=== PATIENT | male | born 1935 | race Caucasian/White ===

== ENCOUNTER 2016-11-22 09:20 | Day surgery (SDC) | payer MEDICARE, BC ==
[2016-11-22] VITALS (9 sets, daily range): BP systolic 113–148; BP diastolic 50–65; PULSE 69–84; RESP 12–22; TEMP 97.5–97.9; O2SAT 91–96; Ht 162.6 cm; Wt 87.4 kg
[~2016-11-22] VITALS: Ht 162.6 cm; Wt 87.4 kg
[~2016-11-22 09:20] MED LIST: AMLO5TAB2 PO; ASPI-728 PO; CALC667T5 PO; CHOL100018 PO; DiphenhydrAMINE 50 MG/ML INJECTION IV ONE; ERTAPENEM IV ONE; INSU100V28 SQ; INSU100V36 SQ; LACT10SO PO; MULT-806 PO; NORMAL SALINE 1,000 ML IV ONE; NORMAL SALINE IV ONE; OXYC-541 PO; POLY255P2 PO; SIMV20TA6 PO; [UNRECOGNIZED DRUG - CODE] PO
--- OUTSIDE RECORDS SUMMARY | 2016-11-22 09:24 | XMS REPORT | Continuity of Care Document ---
Author Author [facility] Organization [facility] Address Unknown Phone Unavailable Support Name Relationship Address Phone SEBASTIAN SULTANA MD Caregiver [facility] [address] [place] [address] Unavailable TAMERA FAULKNER MD Caregiver [address] [place] [address] [phone] ROSALIA GARSIA Next Of Kin [address] [place] [address] Insurance Providers Payer Name Policy Number Subscriber Name Relationship Medicare [id number] Maciej Coleman 18 Self [facility] [id number] Maciej Coleman 18 Self Problems Medical Problems Problem Onset Date Status Congestive Heart Failure not otherwise specified Unknown Active Chronic renal failure syndrome Unknown Active IDDM Unknown Active Pneumonia LLL Unknown Active RLL pneumonia Unknown Active Anterior epistaxis Unknown Active CKD (chronic kidney disease) stage 5, GFR less than 15 ml/min Unknown Active Diastolic CHF, chronic Unknown Active Hypocalcemia Unknown Active Abdominal wall pain Unknown Active Pneumonia Unknown Active Medications Medication Dose Route Sig Days/Qty Instructions Order Date Discontinued Date Status Simvastatin 40 Mg PO DAILY 11/02/10 Active Potassium Chloride 10 Meq PO DAILY 11/02/10 Active Metoprolol Tartrate 25 Mg PO TWICE A DAY 11/02/10 Active Pentoxifylline 400 Mg PO TWICE A DAY 11/02/10 Active Nifedipine 30 Mg PO DAILY 11/02/10 Active Aspirin 325 Mg PO DAILY 11/02/10 Active Docusate Sodium 100 Mg PO TWICE A DAY 11/02/10 Active Multivitamins 1 Tab PO DAILY 11/02/10 Active Insulin Aspart 14 Unit SQ TID WITH MEALS 11/02/10 Active Insulin Glargine 35 Unit SQ BEDTIME 11/02/10 Active Hydrocodone/Acetaminophen 1-2 Tab PO FOUR TIMES DAILY PRN PAIN 30 Qty 08/22/14 Active Azithromycin 1 Tab PO DAILY 4 Qty TAKE TWO ON DAY ONE, 08/22/14 Active Social History Social History Problem Response Recorded Date/Time Hx Alcohol Use No 08/21/2014 11:50pm Has the pt used tobacco in the last 12 months No 09/15/2013 11:00pm Tobacco Usage none 08/22/2014 12:40am Query Response Start Date Stop Date Smoking Status Former smoker Hospital Discharge Instructions No hospital discharge instructions. Plan of Care No plan of care. Functional Status Query Response Date Recorded Physical Hygiene Self August 21, 2014 11:50pm Disabilities None August 21, 2014 11:50pm Devices Used Dentures Glasses August 21, 2014 11:50pm Dressing Self August 21, 2014 11:50pm Ambulation Self August 21, 2014 11:50pm Diet Self August 21, 2014 11:50pm Mental Status Alert Oriented August 21, 2014 11:50pm Disabilities None August 21, 2014 11:50pm Devices Used Dentures Glasses August 21, 2014 11:50pm Physical Hygiene Self August 21, 2014 11:50pm Dressing Self August 21, 2014 11:50pm Ambulation Self August 21, 2014 11:50pm Diet Self August 21, 2014 11:50pm Allergies, Adverse Reactions, Alerts Allergen Type Severity Reaction Status Last Updated Penicillin Allergy Unknown Active 08/21/14 Levofloxacin Allergy Unknown Active 08/21/14 Immunizations Name Given Type Hx Influenza Vaccination Y Fall 2012 Historical Hx Pneumococcal Vaccination Y Doesn't remember when, within last 5 years Historical Hx Influenza Vaccination Y Fall 2012 Historical Vital Signs Acute Vital Signs Vital Response Date/Time Temperature (Fahrenheit) 98.5 deg F (96.8 - 99.1) Temperature (Calculated Celsius) 36.42822 degrees C (36.0 - 37.3) Pulse Rate (adult) 78 bpm (60 - 100) Respiratory Rate 24 breaths/min (10 - 20) O2 Sat by Pulse Oximetry 97 % (90 - 100) Blood Pressure 167/84 mm Hg Height 5 ft 3 in Weight 225 lb Body Mass Index 39.0 kg/m^2 Results Test Source Date Result Interp. Ref. Range Comments Alanine Aminotransferase (ALT/SGPT) August 19, 2014 8:00am 29 U/L N 21- 72 Albumin August 19, 2014 8:00am 3.7 G/DL N 3.5-5.0 Albumin/Globulin Ratio August 19, 2014 8:00am 1.1 RATIO N 1.1-2.2 Alkaline Phosphatase August 19, 2014 8:00am 140 U/L H 38-126 Anion Gap August 19, 2014 8:00am 15 MEQ/L N 5-15 Aspartate Amino Transf (AST/SGOT) August 19, 2014 8:00am 20 U/L N 17- 59 B-Type Natriuretic Peptide November 02, 2010 6:11pm 426 PG/ML H 15-100 BUN/Creatinine Ratio August 19, 2014 8:00am 13 RATIO N 6-26 Band Neutrophils # September 19, 2013 4:48am 0.7 T/MM3 - Band Neutrophils % September 19, 2013 4:48am 11.0 % DH 0-6 Basophils # (Auto) August 19, 2014 8:00am 0.0 T/MM3 N 0-0.2 Basophils (%) (Auto) August 19, 2014 8:00am 0.3 % N 0-2 Blood Urea Nitrogen August 19, 2014 8:00am 69.0 MG/DL PH 9-20 Calcium Level August 19, 2014 8:00am 7.5 MG/DL L 8.4-10.2 Calculated Osmolality August 19, 2014 8:00am 296 MOSM/KG H 261-280 Carbon Dioxide Level August 19, 2014 8:00am 23 MEQ/L N 22-30 Chloride Level August 19, 2014 8:00am 103 MEQ/L N 98-107 Conjugated Bilirubin November 02, 2010 5:10pm 0.00 MG/DL N 0.00-0.30 Creatinine August 19, 2014 8:00am 5.3 MG/DL H 0.8-1.5 Differential Total Cells Counted November 02, 2010 5:10pm 100 % - Eosinophils # (Auto) August 19, 2014 8:00am 0.3 T/MM3 N 0-0.5 Eosinophils # (Manual) September 19, 2013 4:48am 0.1 T/MM3 N 0-0.5 Eosinophils % (Manual) September 19, 2013 4:48am 2.0 % N 0-4 Eosinophils (%) (Auto) August 19, 2014 8:00am 4.2 % H 0-4 Globulin August 19, 2014 8:00am 3.4 G/DL N 2.4-3.6 Glucose Level August 19, 2014 8:00am 184 MG/DL H 75-110 Hematocrit August 19, 2014 8:00am 31.9 % L 41-53 Hemoglobin August 19, 2014 8:00am 10.3 GM/DL L 13.5-17.5 Hemoglobin A1c September 18, 2013 4:50am 7.8 % H 6-7 <6.0 NON-DIABETIC RANGE6.0-7.0 ADA THERAPEUTIC RANGE >7.0 ACTION SUGGESTED Influenza Type A Antigen August 22, 2014 12:24am Negative - Negative for Flu A protein antigen. Assay sensitivity is90%. Influenza Type B Antigen August 22, 2014 12:24am Negative - Negative for Flu B protein antigen. Assay sensitivity is90%. Lymphocytes # (Auto) August 19, 2014 8:00am 1.2 T/MM3 N 1-4.8 Lymphocytes # (Manual) September 19, 2013 4:48am 1.7 T/MM3 N 1-4.8 Lymphocytes % (Manual) September 19, 2013 4:48am 28.0 % N 23-45 Lymphocytes (%) (Auto) August 19, 2014 8:00am 15.4 % L 23-45 Mean Corpuscular Hemoglobin August 19, 2014 8:00am 27.9 UUG N 26-34 Mean Corpuscular Hemoglobin Concent August 19, 2014 8:00am 32.3 GM/DL N 31-37 Mean Corpuscular Volume August 19, 2014 8:00am 86.4 UM3 N 80-100 Mean Platelet Volume August 19, 2014 8:00am 9.3 UM3 L 9.4-12.4 Monocytes # (Auto) August 19, 2014 8:00am 0.6 T/MM3 N 0-0.8 Monocytes # (Manual) September 19, 2013 4:48am 0.5 T/MM3 N 0-0.8 Monocytes % (Manual) September 19, 2013 4:48am 8.0 % N 0-9.0 Monocytes (%) (Auto) August 19, 2014 8:00am 8.0 % N 0-9.0 Neutrophils # (Auto) August 19, 2014 8:00am 5.6 T/MM3 N 1.8-7.7 Neutrophils # (Manual) September 19, 2013 4:48am 3.0 T/MM3 N 1.8-7.7 Neutrophils % (Manual) September 19, 2013 4:48am 50.0 % N 33-66 Neutrophils (%) (Auto) August 19, 2014 8:00am 71.8 % H 33-66 Platelet Count August 19, 2014 8:00am 165 T/MM3 N 130-400 Potassium Level August 19, 2014 8:00am 3.7 MEQ/L N 3.6-5 Prealbumin September 16, 2013 7:05am 22.5 MG/DL N 17.6-36.0 RDW Standard Deviation August 19, 2014 8:00am 44.0 FL N 36.9-50.2 Red Blood Count August 19, 2014 8:00am 3.69 M/MM3 L 4.50-5.90 Sodium Level August 19, 2014 8:00am 141 MEQ/L N 134-144 Thyroid Stimulating Hormone (TSH) September 16, 2013 7:05am 2.26 MIU/L N 0.47-4.68 COMMENT blood in lab Total Bilirubin August 19, 2014 8:00am 0.60 MG/DL N 0.20-1.30 Total Protein August 19, 2014 8:00am 7.1 G/DL N 6.3-8.2 Troponin I August 19, 2014 8:00am 0.062 ng/ml N 0-0.12 Unconjugated Bilirubin November 02, 2010 5:10pm 0.75 MG/DL N 0.00-1.10 Urine Bilirubin September 15, 2013 7:30pm Negative - Has specimen been collected/obtained? Y Urine Blood September 15, 2013 7:30pm 1+ H - Has specimen been collected /obtained? Y Urine Collection Type September 15, 2013 7:30pm Voided-not cc-midstr - Has specimen been collected/obtained? Y Urine Color September 15, 2013 7:30pm Yellow - Has specimen been collected/obtained? Y Urine Culture Indicated November 02, 2010 6:27pm Cult not indicated - Has specimen been collected/obtained? Y Urine Glucose (UA) September 15, 2013 7:30pm 2+ H - Has specimen been collected/obtained? Y Urine Ketones September 15, 2013 7:30pm Negative - Has specimen been collected/obtained? Y Urine Leukocyte Esterase September 15, 2013 7:30pm Negative - Has specimen been collected/obtained? Y Urine Nitrite September 15, 2013 7:30pm Negative - Has specimen been collected/obtained? Y Urine Protein September 15, 2013 7:30pm 2+ H - Has specimen been collected/obtained? Y Urine RBC November 02, 2010 6:27pm 0-1 /HPF - Has specimen been collected/obtained? Y Urine Specific [place] September 15, 2013 7:30pm 1.015 - Has specimen been collected/obtained? Y Urine Turbidity September 15, 2013 7:30pm Clear - Has specimen been collected/obtained? Y Urine Urobilinogen September 15, 2013 7:30pm 0.2 EU/DL - Has specimen been collected/obtained? Y Urine WBC September 15, 2013 7:30pm 1-3 /HPF - Has specimen been collected/obtained? Y Urine pH September 15, 2013 7:30pm 6.0 - Has specimen been collected/ obtained? Y Vitamin B12 Level September 16, 2013 7:05am 520 PG/ML N 239-931 White Blood Count August 19, 2014 8:00am 7.8 T/MM3 N 4.5-11.0 Chemistry Specimen Hemolysis August 19, 2014 8:00am < 15 0-25 0-25: No Hemolysis.26-70: Slight Hemolysis - can falsely elevate K and Urine Protein. 71-285: Moderate Hemolysis - can falsely elevate K, Troponin I, CA 19-9, PTH, CSF GLucose, and Urine Protein, and can falsely decrease Phenytoin. 286-999: Gross Hemolysis - can falsely elevate K, Troponin I, CA 19-9, PTH, CSF Glucose, and Urine Protine, and can falsely decrease Phenytoin. Recommend specimen recollection. Glucometer September 20, 2013 11:40am 182 mg/dL H 75-110 Lab Scanned Report January 10, 2010 10:32am LAB TEST FORM REQUEST [id number] - Turbidity August 19, 2014 8:00am < 20 0-20 Reactive Lymphocytes % September 19, 2013 4:48am 1.0 % H 0-0 Glomerular Filtration Rate Calc August 19, 2014 8:00am 11 - Reactive Lymphocytes # September 19, 2013 4:48am 0.1 T/MM3 H 0-0 Immature Granulocyte # (Auto) August 19, 2014 8:00am 0.02 T/MM3 N 0.00- 0.03 Immature Granulocyte % (Auto) August 19, 2014 8:00am 0.3 % N 0.0-0.5 Venous Blood Lactate September 15, 2013 6:58pm 1.0 MMOL/L N 0.6-2.2 Procalcitonin September 15, 2013 6:58pm 0.12 NG/ML - PCT </=0.5 ng/mL - sepsis not likely;PCT >0.5 and </=2 ng/mL - sepsis possible; PCT >2 ng/mL - sepsis likely; PCT >/=10 ng/mL - systemic inflammatory response - sepsis or septic shock highly indicated. Icterus Index August 19, 2014 8:00am < 2 0-7 JP-Qqm-I-Type Natriuretic Peptide August 19, 2014 8:00am 11420 PG/ML H 0-175 Rule in cut points: <50 years old=450; 50-75 years old=900; >75 years old=1800; When utilizing ProBNP rule-in cut points, adjustment for impaired renal function is typically not required. Blood Culture Blood September 15, 2013 7:50pm NO GROWTH AFTER 5 DAYS Gram Stain Sputum-Expectorated Sputum September 15, 2013 9:00pm Name: MACIEJ COLEMAN Unit #: [id number] : 1935 Sex: M Loc / Svc: ED DOS: 08/19/14 Signed Report #: [id number] DIAGNOSTIC IMAGING REPORT TYPE OF EXAM: CHEST, PA & LATERAL Dictated By: TARAH GOMEZ MD INDICATION: ITS.REASON: cough, hx pneumonia CHEST 2-VIEWS UPRIGHT (PA & LAT): COMPARISON: September 18, 2013 FINDINGS: Post sternotomy changes are again noted. Severe cardiomegaly is redemonstrated. Mediastinal contours are stable. Pulmonary vascularity appears normal. No definite focal airspace consolidation. Portions of the left lung base obscured by the enlarged cardiac silhouette. No pleural effusion or pneumothorax. Arterial vascular calcifications. Impression: No pneumonia or congestive failure. Severe cardiomegaly. . Procedures Procedure Status Date Provider(s) E&M LEVEL - FACILITY completed 07/20/14 KANDACE MILIAN [facility] completed 08/02/14 [id number]"BORDER, EACH DRESSING" completed 08/02/14 [id number]"EQUAL TO 48 SQ. IN., WITHOUT ADHESIVE BORDER, EACH DR completed APPLY CECIL MILIAN LWR LEG completed 07/28/14 [id number]"BORDER, EACH DRESSING" completed 07/28/14 E&M LEVEL - FACILITY completed 07/28/14 APPLY CECIL MILIAN [facility]WR LEG completed 08/09/14 [id number]"BORDER, EACH DRESSING" completed 08/09/14 E&M LEVEL - FACILITY completed 08/09/14 E&M LEVEL - FACILITY completed 08/16/14 Encounters Encounter Location Date/Time Departed Emergency Room [facility] 08/21/14 11:11pm Departed Emergency Room [facility] 08/19/14 7:27am Registered Clinic [facility] 08/16/14 9:07am Registered Clinic [facility] 08/09/14 9:06am Registered Clinic [facility] 08/02/14 8:06am Registered [facility] 07/28/14 10:52am Registered [facility] 07/20/14 7:32am Recent Diagnosis
--- OUTSIDE RECORDS SUMMARY | 2016-11-22 09:24 | XMS REPORT | Continuity of Care Document ---
Author Author [facility] Organization [facility] Address Unknown Phone Unavailable Support Name Relationship Address Phone TAMERA FAULKNER MD Caregiver [address] [place] [phone] VIANNEY RATLIFF MD Caregiver [address] [facility] [place] [phone] ROSALIA GARSIA Next Of Kin [address] [place], [place] [id number] Insurance Providers Payer Name Policy Number Subscriber Name Relationship Medicare [id number] Maciej Coleman 18 Self [facility] [id number] Maciej Coleman 18 Self Problems Medical Problems [...] wall pain Unknown Active Pneumonia Unknown Active RLL pneumonia Unknown Active Influenza A Unknown Active Influenza A Unknown Active Medications Medication Dose Route Sig [...] Glargine 35 Unit SQ BEDTIME 11/02/10 Active Oseltamivir Phosphate 75 Mg PO TWICE A DAY 10 Qty Take one capsules, by mouth, two times a day. 09/05/14 Active Albuterol Sulfate 2 Puff IH EVERY 4 HOURS For WHEEZING 1 Qty 09/05/14 Active Benzonatate 100 Mg PO THREE TIMES A DAY For COUGH 30 Qty 09/05/14 Active Social History Social History Problem Response Recorded Date/Time Hx Alcohol Use No 09/04/2014 11:50pm Has the pt used tobacco in the last 12 months No 09/15/2013 11:00pm Tobacco Usage none 08/22/2014 12:40am Query Response Start Date Stop Date Smoking Status Never smoker Hospital Discharge Instructions No hospital discharge instructions. Plan of Care No plan of care. Functional Status Query Response Date Recorded Physical Hygiene Self September 04, 2014 11:50pm Disabilities Hearing September 04, 2014 11:50pm Devices Used Glasses September 04, 2014 11:50pm Dressing Self September 04, 2014 11:50pm Ambulation Self September 04, 2014 11:50pm Diet Self September 04, 2014 11:50pm Mental Status Alert Oriented September 05, 2014 12:59am Disabilities Hearing September 04, 2014 11:50pm Devices Used Glasses September 04, 2014 11:50pm Physical Hygiene Self September 04, 2014 11:50pm Dressing Self September 04, 2014 11:50pm Ambulation Self September 04, 2014 11:50pm Diet Self September 04, 2014 11:50pm Allergies, Adverse Reactions, Alerts Allergen Type Severity Reaction Status Last Updated Penicillin Allergy Unknown Active 09/04/14 Levofloxacin Allergy Unknown Active 09/04/14 Immunizations Name Given Type Hx Influenza Vaccination Y Fall 2012 Historical Hx Pneumococcal Vaccination Y Doesn't remember when, within last 5 years Historical Hx Influenza Vaccination Y Fall 2012 Historical Vital Signs Acute Vital Signs Vital Response Date/Time Temperature (Fahrenheit) 98.2 deg F (96.8 - 99.1) Temperature (Calculated Celsius) 36.65821 degrees C (36.0 - 37.3) Pulse Rate (adult) 84 bpm (60 - 100) Respiratory Rate 20 breaths/min (10 - 20) O2 Sat by Pulse Oximetry 94 % (90 - 100) Blood Pressure 152/68 mm Hg Height 5 ft 0 in Weight 220 lb Body Mass Index 43.0 kg/m^2 Results Test Source Date Result Interp. [...] 19, 2014 8:00am 23 MEQ/L N 22-30 Chemistry Specimen Hemolysis August 19, 2014 8:00am [...] can falsely decrease Phenytoin. Recommend specimen recollection. Chloride Level August 19, 2014 8:00am 103 [...] 19, 2014 8:00am 3.4 G/DL N 2.4-3.6 Glomerular Filtration Rate Calc August 19, 2014 8:00am 11 - Glucometer September 20, 2013 11:40am 182 mg/dL H 75-110 Glucose Level August 19, 2014 8:00am 184 MG/DL H 75-110 Hematocrit August 19, 2014 8:00am 31.9 % L 41-53 Hemoglobin August 19, 2014 8:00am 10.3 GM/DL L 13.5-17.5 Hemoglobin A1c September 18, 2013 4:50am 7.8 % H 6-7 <6.0 NON-DIABETIC RANGE6.0-7.0 ADA THERAPEUTIC RANGE >7.0 ACTION SUGGESTED Icterus Index August 19, 2014 8:00am < 2 0-7 Immature Granulocyte # (Auto) August 19, 2014 8:00am 0.02 T/MM3 N 0.00- 0.03 Immature Granulocyte % (Auto) August 19, 2014 8:00am 0.3 % N 0.0-0.5 Influenza Type A Antigen September 05, 2014 12:06am Positive - This test can not distinguish influenza A virus subtypes,e.g., seasonal influenza A and novel influenza A (H1N1). Influenza Type B Antigen September 05, 2014 12:06am Negative - Negative for Flu B protein antigen. Assay sensitivity is90%. Lab Scanned Report January 10, 2010 10:32am LAB TEST FORM REQUEST [id number] - Lymphocytes # (Auto) August 19, 2014 8:00am [...] 19, 2014 8:00am 8.0 % N 0-9.0 LL-Bst-Y-Type Natriuretic Peptide August 19, 2014 8:00am 03257 PG/ML H 0-175 Rule in cut points: <50 years old=450; 50-75 years old=900; >75 years old=1800; When utilizing ProBNP rule-in cut points, adjustment for impaired renal function is typically not required. Neutrophils # (Auto) August 19, 2014 8:00am [...] 16, 2013 7:05am 22.5 MG/DL N 17.6-36.0 Procalcitonin September 15, 2013 6:58pm 0.12 NG/ML - PCT </=0.5 ng/mL - sepsis not likely;PCT >0.5 and </=2 ng/mL - sepsis possible; PCT >2 ng/mL - sepsis likely; PCT >/=10 ng/mL - systemic inflammatory response - sepsis or septic shock highly indicated. RDW Standard Deviation August 19, 2014 8:00am 44.0 FL N 36.9-50.2 Reactive Lymphocytes # September 19, 2013 4:48am 0.1 T/MM3 H 0-0 Reactive Lymphocytes % September 19, 2013 4:48am 1.0 % H 0-0 Red Blood Count August 19, 2014 8:00am [...] 19, 2014 8:00am 0.062 ng/ml N 0-0.12 Turbidity August 19, 2014 8:00am < 20 0-20 Unconjugated Bilirubin November 02, 2010 5:10pm 0.75 [...] Has specimen been collected/obtained? Y Urine Specific [place] September 15, 2013 7:30pm 1.015 - Has [...] - Has specimen been collected/ obtained? Y Venous Blood Lactate September 15, 2013 6:58pm 1.0 MMOL/L N 0.6-2.2 Vitamin B12 Level September 16, 2013 7:05am 520 PG/ML N 239-931 White Blood Count August 19, 2014 8:00am 7.8 T/MM3 N 4.5-11.0 Blood Culture Blood September 15, 2013 7:50pm NO GROWTH AFTER 5 DAYS Gram Stain Sputum-Expectorated Sputum September 15, 2013 9:00pm Name: MACIEJ COLEMAN Unit #: [id number] : 1935 Sex: M Loc / Svc: ED DOS: 08/21/14 Signed Report #: [id number] DIAGNOSTIC IMAGING REPORT TYPE OF EXAM: CHEST, PA & LATERAL Dictated By: TARAH GOMEZ MD INDICATION: ITS.REASON: chest pain with cough CHEST 2-VIEWS UPRIGHT (PA & LAT): COMPARISON: August 19, 2014 FINDINGS: Lungs are stable in appearance. No new airspace consolidation seen. Severe cardiomegaly again noted with prominence and tortuosity of the thoracic aorta. No pneumothorax or gross effusion. Impression: Stable exam with severe cardiomegaly. . Procedures Procedure Status Date Provider(s) E&M LEVEL - FACILITY completed 07/20/14 KANDACE MILIAN [facility]WR [facility]G completed 08/02/14 [id number]"BORDER, EACH DRESSING" completed 08/02/14 [id number]"EQUAL TO 48 SQ. IN., WITHOUT ADHESIVE BORDER, EACH DR completed APPLY MULTLAY COMPRS LWR LEG completed 07/28/14 [id number]"BORDER, EACH DRESSING" completed 07/28/14 E&M LEVEL - FACILITY completed 07/28/14 APPLY MULTLAY COMPRS LWR LEG completed 08/09/14 [id number]"BORDER, EACH DRESSING" completed 08/09/14 E&M LEVEL - FACILITY completed 08/09/14 E&M LEVEL - FACILITY completed 08/16/14 CONTROL OF NOSEBLEED completed 08/19/[address] NEEDLE IN VEIN completed 08/19/14 GRICELDA MORALES MD CHEST X-RAY 2VW FRONTAL&LATL completed 08/19/14 COMPREHEN METABOLIC PANEL completed 08/19/14 ASSAY OF NATRIURETIC PEPTIDE completed 08/19/14 ASSAY OF TROPONIN QUANT completed 08/19/14 COMPLETE CBC W/AUTO DIFF WBC completed 08/19/14 INFLUENZA A/B AG EIA completed 08/19/14 EMERGENCY DEPT VISIT completed 08/19/14 CHEST X-RAY 2VW FRONTAL&LATL completed 08/21/14 INFLUENZA A/B AG EIA completed 08/21/14 EMERGENCY DEPT VISIT completed 08/21/14 [id number] ITEM OR SERVICE completed 08/21/14 [id number] ITEM OR SERVICE completed 08/21/14 Encounters Encounter Location Date/Time Departed Emergency Room [facility] 09/04/14 9:13pm Registered [facility] 08/30/14 9:26am Departed Emergency Room [facility] 08/21/14 11:11pm Departed Emergency Room [facility] 08/19/14 7:27am Registered [facility] 08/16/14 9:07am Registered [facility] 08/09/14 9:06am Registered [facility] 08/02/14 8:06am Registered [facility] 07/28/14 10:52am Registered [facility] 07/20/14 7:32am Recent Diagnosis
--- OUTSIDE RECORDS SUMMARY | 2016-11-22 09:25 | XMS REPORT | Continuity of Care Document ---
Author Author [facility] Organization [facility] Address Unknown Phone Unavailable Support Name Relationship Address Phone GRICELDA MORALES MD Caregiver [address] [place] [address] TAMERA FAULKNER MD Caregiver [address] [place] [phone] ROSALIA GARSIA Next Of Kin [address] [place] [address] Insurance Providers Payer Name Policy Number Subscriber Name Relationship Medicare [id number] Maciej Coleman 18 Self [facility] [id number] Maciej Coleman 18 Self Advance Directives Directive Response Recorded Date/Time Advanced Directives Type Unable to Obtain 08/19/14 7:30am Problems Medical Problems Problem Onset Date Status Congestive Heart Failure not otherwise specified Unknown Active Chronic renal failure syndrome Unknown Active IDDM Unknown Active Pneumonia LLL Unknown Active RLL pneumonia Unknown Active Anterior epistaxis Unknown Active CKD (chronic kidney disease) stage 5, GFR less than 15 ml/min Unknown Active Diastolic CHF, chronic Unknown Active Hypocalcemia Unknown Active Medications Medication Dose Route Sig Days/Qty Instructions Order Date Discontinued Date Status Bumetanide 2 Mg PO DAILY 11/02/10 Active Simvastatin 40 Mg PO DAILY 11/02/10 Active Potassium Chloride 10 Meq PO DAILY 11/02/10 Active Metoprolol Tartrate 25 Mg PO TWICE A DAY 11/02/10 Active Pentoxifylline 400 Mg PO TWICE A DAY 11/02/10 Active Nifedipine 30 Mg PO DAILY 11/02/10 Active Pioglitazone HCl 15 Mg PO DAILY 11/02/10 Active Aspirin 325 Mg PO DAILY 11/02/10 Active Sennosides 1 Tab PO TWICE A DAY 11/02/10 Active Docusate Sodium 100 Mg PO TWICE A DAY 11/02/10 Active Multivitamins 1 Tab PO DAILY 11/02/10 Active Epoetin Jacobo 1,000 Unit SQ MONTHLY 11/02/10 Active Insulin Aspart 14 Unit SQ TID WITH MEALS 11/02/10 Active Insulin Glargine 35 Unit SQ BEDTIME 11/02/10 Active Doxycycline Monohydrate 1 Tab PO TWICE DAILY WITH MEALS 20 Qty Active Social History Social History Problem Response Recorded Date/Time Has the pt used tobacco in the last 12 months No 09/15/2013 11:00pm Query Response Start Date Stop Date Smoking Status Former smoker Hospital Discharge Instructions No hospital discharge instructions. Plan of Care No plan of care. Functional Status Query Response Date Recorded Physical Hygiene Self August 19, 2014 7:41am Disabilities Visual August 19, 2014 7:41am Devices Used Glasses August 19, 2014 7:41am Dressing Self August 19, 2014 7:41am Ambulation Self August 19, 2014 7:41am Diet Self August 19, 2014 7:41am Mental Status Alert Oriented August 19, 2014 9:41am Disabilities Visual August 19, 2014 7:41am Devices Used Glasses August 19, 2014 7:41am Physical Hygiene Self August 19, 2014 7:41am Dressing Self August 19, 2014 7:41am Ambulation Self August 19, 2014 7:41am Diet Self August 19, 2014 7:41am Allergies, Adverse Reactions, Alerts Allergen Type Severity Reaction Status Last Updated Penicillin Allergy Unknown Active 09/15/13 Levofloxacin Allergy Unknown Active 09/15/13 Immunizations Name Given Type Hx Influenza Vaccination Y Fall 2012 Historical Hx Pneumococcal Vaccination Y Doesn't remember when, within last 5 years Historical Hx Influenza Vaccination Y Fall 2012 Historical Vital Signs Acute Vital Signs Vital Response Date/Time Temperature (Fahrenheit) 98.1 deg F (96.8 - 99.1) Temperature (Calculated Celsius) 36.88167 degrees C (36.0 - 37.3) Pulse Rate (adult) 66 bpm (60 - 100) Respiratory Rate 20 breaths/min (10 - 20) O2 Sat by Pulse Oximetry 95 % (90 - 100) Blood Pressure 154/66 mm Hg Height 5 ft 3 in Weight 222 lb Body Mass Index 39.0 kg/m^2 Results [...] ACTION SUGGESTED Influenza Type A Antigen August 19, 2014 8:02am Negative - Negative for Flu A protein antigen. Assay sensitivity is90%. Influenza Type B Antigen August 19, 2014 8:02am Negative - Negative for Flu B protein [...] Has specimen been collected/obtained? Y Urine Specific Ransom September 15, 2013 7:30pm 1.015 - Has [...] 10, 2010 10:32am LAB TEST FORM REQUEST [id number] - Turbidity August 19, 2014 8:00am < [...] August 19, 2014 8:00am < 2 0-7 OT-Xim-S-Type Natriuretic Peptide August 19, 2014 8:00am [address]4577 PG/ML H 0-175 Rule in cut points: <50 years old=450; 50-75 years old=900; >75 years old=1800; When utilizing ProBNP rule-in cut points, adjustment for impaired renal function is typically not required. Blood Culture Blood September 15, 2013 7:50pm NO GROWTH AFTER 5 DAYS Gram Stain Sputum-Expectorated Sputum September 15, 2013 9:00pm Name: MACIEJ COLEMAN Unit #: [id number] : 1935 Sex: M Loc / Svc: ED DOS: 08/19/14 Signed Report #: [id number] DIAGNOSTIC IMAGING REPORT TYPE OF EXAM: CHEST, [...] 07/20/14 KANDACE MILIAN LWR LEG completed 08/02/14 [id number]"BORDER, EACH DRESSING" completed 08/02/14 [id number]"EQUAL TO 48 SQ. IN., WITHOUT ADHESIVE BORDER, EACH DR completed APPLY CECIL MILIAN LWR LEG completed 07/28/14 [id number]"BORDER, EACH DRESSING" completed 07/28/14 E&M LEVEL - FACILITY completed 07/28/14 Encounters Encounter Location Date/Time Departed Emergency Room [facility] 08/19/14 7:27am Registered [facility] 08/16/14 9:07am Registered [facility] 08/09/14 9:06am Registered [facility] 08/02/14 8:06am Registered [facility] 07/28/14 10:52am Registered [facility] 07/20/14 7:32am Recent Diagnosis
--- OUTSIDE RECORDS SUMMARY | 2016-11-22 09:25 | XMS REPORT | Referral Summary ---
Author Author [facility] Organization [facility] Address Unknown Phone Unavailable Care Team Providers Care Baggage Checker Name Role Phone Manuel Iyer Primary Care Physician [phone] Encounter VC Date(s): 05/03/16 - 05/03/16 [facility] [address] [place] [address] Discharge Disposition: 01-Home or Self Care Attending Physician: Julio Cortes MD Admitting Physician: Julio Cortes MD Vital Signs Most recent to 1 oldest [Reference Range]: Temperature Skin 36.3 degC [36-37 degC] (05/03/16 10:21 AM) Temperature Temporal 36.5 degC Artery [36.3-37.8 (05/03/16 12:35 PM) degC] Peripheral Pulse 78 bpm Rate [60-100 bpm] (05/03/16 6:31 AM) Heart Rate Monitored 72 bpm [60-100 bpm] (05/03/16 12:35 PM) Respiratory Rate 20 br/min [14-20 br/min] (05/03/16 12:35 PM) Blood Pressure 144/62 mmHg [90-140/60-90 mmHg] *HI* (05/03/16 12:35 PM) Mean Arterial 97 mmHg Pressure, Cuff (05/03/16 10:55 AM) SpO2 98 % (05/03/16 12:35 PM) Problem List Condition Effective Dates Status Health Status Informant Actinic keratosis Active (disorder)(Confirmed ) 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) Benign essential Active hypertension (disorder)(Confirmed ) Benign Active hypertension(Confirm ed) Chronic kidney Resolved disease stage 4 (disorder)(Confirmed ) Chronic kidney Active disease (CKD), stage V(Confirmed) Chronic renal Resolved insufficiency(Confir med) Coronary Active arteriosclerosis (disorder)(Confirmed ) CAD (coronary artery Resolved disease)(Confirmed) Diabetes(Confirmed) Resolved Diabetic peripheral Active neuropathy(Confirmed ) Hypercholesterolemia Active (Confirmed) Hyperlipidemia(Confi Resolved rmed) Hypertension(Confirm Resolved ed) Kidney Resolved disease(Confirmed) Kidney Resolved stones(Confirmed) Neuropathy(Confirmed Resolved ) Obesity(Confirmed) Active patient Pancreatitis(Confirm Resolved ed) Peripheral vascular Active disease (disorder)(Confirmed ) Pure Active hypercholesterolemia (disorder)(Confirmed ) Venous Stasis Resolved dermatitis(Confirmed ) 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 ) Allergies, Adverse Reactions, Alerts Substance Reaction Severity Status levofloxacin RED RASH Active penicillin Rash Active Medications amLODIPine 5 mg, Oral, Daily, 0 Refill(s) Start Date: 03/15/16 Status: Ordered aspirin 325 mg, Oral, Daily, 0 Refill(s) Start Date: 01/12/14 Status: Ordered calcium acetate 667 MG mg, Oral, TID, 0 Refill(s) Start Date: 03/15/16 Status: Ordered Colace 100 mg oral capsule 100 mg 1 caps, Oral, BID, 0 Refill(s) Start Date: 05/03/16 Status: Ordered furosemide 80 mg, Oral, Daily, 0 Refill(s) Start Date: 03/15/16 Status: Ordered Klor-Con 20 mEq, Oral, Daily, 0 Refill(s) Start Date: 03/15/16 Status: Ordered lactulose 10 g/15 mL oral syrup 10 g 15 mL, Oral, Daily, # 473 mL, 6 Refill(s), Pharmacy: [facility] # [id number], 15 mL Oral Daily Start Date: 03/12/16 Stop Date: 03/12/17 Status: Ordered Lantus 84 units, SubCutaneous, Bedtime (once a day), 0 Refill(s) Start Date: 03/15/16 Status: Ordered MiraLax 17 g 1 packets, Oral, Daily, 0 Refill(s) Start Date: 05/03/16 Status: Ordered multivitamin Daily, 0 Refill(s) Start Date: 01/12/14 Status: Ordered Centerpoint 5 mg-325 mg oral tablet 1-2 tabs, Oral, q4hr, as needed for pain, # 40 tabs, 0 Refill(s) Start Date: 05/03/16 Stop Date: 05/14/16 Status: Ordered NovoLIN R 100 units/mL injectable solution 28 units, SubCutaneous, TIDAC, RELION, # 3 mL, 3 Refill(s), Pharmacy: [id number], 28 units SubCutaneous TIDAC,Instr:RELION Start Date: 04/03/16 Status: Ordered pentoxifylline 400 mg, Oral, BID, 0 Refill(s) Start Date: 03/15/16 Status: Ordered Percocet 5/325 oral tablet 2 tabs, Oral, q4hr, Pain Moderate (4-6), 0 Refill(s) Start Date: 03/15/16 Status: Ordered Senna S 1 tabs, Oral, BID, 0 Refill(s) Start Date: 01/12/14 Status: Ordered simvastatin 20 mg, Oral, Daily, 0 Refill(s) Start Date: 03/15/16 Status: Ordered Vitamin D3 1000 intl units oral tablet 1,000 Intl_Units 1 tabs, Oral, Daily, # 30 tabs, 0 Refill(s) Start Date: 02/10/15 Status: Ordered Results Hematology Most recent to 1 oldest [Reference Range]: WBC [4.8-10.8 10.8 10*3/uL 10*3/uL] (05/03/16 6:44 AM) RBC [4.60-6.20] 4.24 *LOW* (05/03/16 6:44 AM) Hgb [14.0-18.0 12.3 gm/dL gm/dL] *LOW* (05/03/16 6:44 AM) Hct [42.0-52.0 %] 39.4 % *LOW* (05/03/16 6:44 AM) MCV [82.0-99.0 fL] 92.9 fL (05/03/16 6:44 AM) MCH [27.0-32.0 pg] 29.0 pg (05/03/16 6:44 AM) MCHC [32.0-36.0 31.2 gm/dL gm/dL] *LOW* (05/03/16 6:44 AM) RDW [11.5-14.5 %] 15.4 % *HI* (05/03/16 6:44 AM) Platelet [150-400 199 10*3/uL 10*3/uL] (05/03/16 6:44 AM) MPV [9.4-12.3 fL] 10.2 fL (05/03/16 6:44 AM) Chemistry Most recent to 1 oldest [Reference Range]: Sodium Lvl [136-144 139 mEq/L mEq/L] (05/03/16 6:44 AM) Potassium Lvl 3.9 mEq/L [3.6-5.1 mEq/L] (05/03/16 6:44 AM) Chloride [99-109 100 mEq/L mEq/L] (05/03/16 6:44 AM) CO2 [22-32 mEq/L] 28 mEq/L (05/03/16 6:44 AM) AGAP [3-20] 11 (05/03/16 6:44 AM) BUN [4-20 mg/dL] 26 mg/dL *HI* (05/03/16 6:44 AM) Glucose Lvl [70-100 51 mg/dL mg/dL] *LOW* (05/03/16 6:44 AM) Creatinine Lvl 5.16 mg/dL [0.64-1.27 mg/dL] *HI* (05/03/16 6:44 AM) eGFR [>60] 11 1 *ABN* (05/03/16 6:44 AM) Calcium Lvl 8.8 mg/dL [8.6-10.0 mg/dL] (05/03/16 6:44 AM) Blood Glucose, 65 mg/dL Capillary [70-100 *LOW* mg/dL] (05/03/16 11:08 AM) 1Result Comment: Multiply eGFR results by 1.21 for race. Immunizations Vaccine Date Refusal Reason influenza virus vaccine, inactivated1 05/26/14 influenza virus vaccine, live 04/14/13 influenza virus vaccine, live 05/20/12 pneumococcal 23-polyvalent vaccine 07/03/11 pneumococcal 23-polyvalent vaccine 08/01/04 tetanus/diphtheria/pertussis, acel(Tdap) 02/24/13 tetanus/diphtheria/pertussis, acel(Tdap) 11/18/12 tetanus-diphth toxoids (Td) adult/adol 08/01/04 1Result Comment: [05/26/2014] see scanned document Procedures Procedure Date Related Diagnosis Body Site Creation Fistula Arterial Venous Arm (Right, 05/03/16 Upper Extremity)1 Creation Fistula Arterial Venous Arm (Right, 03/15/16 Upper Extremity)2 Excision skin SQ Cell Ca 2011 CABG - Coronary artery bypass graft 2002 Cataract extraction Shunt left forearm3 1auto-populated from documented surgical case 2auto-populated from documented surgical case 3Left forearm. Preparation for dialysis. Social History Social History Type Response Smoking Status Former smoker; Type: Cigarettes Assessment and Plan No data available for this section
--- OUTSIDE RECORDS SUMMARY | 2016-11-22 09:25 | XMS REPORT | Referral Summary ---
Author Author [facility] Organization [facility] Address Unknown Phone Unavailable Care Team Providers Care Stock Broker Name Role Phone Manuel Iyer Primary Care Physician [phone] Encounter VC Date(s): 06/05/16 - 06/08/16 [facility] [address] [place] [address] [phone] Discharge Disposition: 01-Home or Self Care Attending Physician: Julio Cortes MD Admitting Physician: Julio Cortes MD Vital Signs Most recent to 1 oldest [Reference Range]: Temperature Oral 36.6 degC [35.8-37.3 degC] (06/08/16 5:18 PM) Temperature Skin 36 degC [36-37 degC] (06/05/16 3:00 PM) Peripheral Pulse 88 bpm Rate [60-100 bpm] (06/08/16 5:18 PM) Heart Rate Monitored 80 bpm [60-100 bpm] (06/05/16 6:10 PM) Respiratory Rate 20 br/min [14-20 br/min] (06/08/16 5:18 PM) Blood Pressure 120/62 mmHg [90-140/60-90 mmHg] (06/08/16 5:18 PM) Mean Arterial 84 mmHg Pressure, Cuff (06/07/16 5:48 AM) SpO2 99 % (06/08/16 5:18 PM) Problem List Condition Effective Dates Status Health Status Informant Actinic keratosis Active (disorder)(Confirmed ) Acute Resolved pain(Confirmed) 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) At risk of pressure Resolved sore(Confirmed) Benign essential Active hypertension (disorder)(Confirmed ) Benign Active hypertension(Confirm ed) Chronic kidney Resolved disease stage 4 (disorder)(Confirmed ) Chronic kidney Active disease (CKD), stage V(Confirmed) Chronic renal Resolved insufficiency(Confir med) Coronary Active arteriosclerosis (disorder)(Confirmed ) CAD (coronary artery Resolved disease)(Confirmed) Diabetes(Confirmed) Resolved Diabetic peripheral Active neuropathy(Confirmed ) Hypercholesterolemia Active (Confirmed) Hyperlipidemia(Confi Resolved rmed) Hypertension(Confirm Resolved ed) Impaired skin Resolved integrity(Confirmed) 1 Kidney Resolved disease(Confirmed) Kidney Resolved stones(Confirmed) Neuropathy(Confirmed Resolved ) Obesity(Confirmed) Active patient Pancreatitis(Confirm Resolved ed) Peripheral vascular Active disease (disorder)(Confirmed ) Pure Active hypercholesterolemia (disorder)(Confirmed ) Venous Stasis Resolved dermatitis(Confirmed ) 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 ) 1Problem added automatically by system based on initiation of Impaired Skin Integrity Plan of Care Allergies, Adverse Reactions, Alerts Substance Reaction Severity [...] 0 Refill(s) Start Date: 05/03/16 Status: Ordered lactulose 10 g/15 mL oral syrup 10 g 15 mL, Oral, Daily, # 473 mL, 6 Refill(s), Pharmacy: [facility] # [id number], 15 mL Oral Daily Start Date: 03/12/16 Stop Date: 03/12/17 Status: Ordered Lantus 84 units, SubCutaneous, Bedtime (once a day), 0 Refill(s) Start Date: 03/15/16 Status: Ordered multivitamin Oral, Daily, 0 Refill(s) Start Date: 01/12/14 Status: Ordered Tyler 5 mg-325 mg oral tablet 1 tabs, Oral, q4hr, as needed for pain, 0 Refill(s) Start Date: 06/05/16 Status: Ordered NovoLIN R 100 units/mL injectable solution 28 units, SubCutaneous, TIDAC, RELION, # 3 mL, 3 Refill(s), Pharmacy: [id number], 28 units SubCutaneous TIDAC,Instr:RELION Start Date: 04/03/16 Status: Ordered pentoxifylline 400 mg, Oral, BID, 0 Refill(s) Start Date: 03/15/16 Status: Ordered simvastatin 20 mg, Oral, Daily, 0 Refill(s) Start Date: 03/15/16 Status: Ordered Vitamin D3 1000 intl units oral tablet 1,000 Intl_Units 1 tabs, Oral, Daily, # 30 tabs, 0 Refill(s) Start Date: 02/10/15 Status: Ordered Results Hematology Most recent to 1 oldest [Reference Range]: WBC [4.8-10.8 6.6 10*3/uL 10*3/uL] (06/08/16 7:26 AM) RBC [4.60-6.20] 4.04 *LOW* (06/08/16 7:26 AM) Hgb [14.0-18.0 11.3 gm/dL gm/dL] *LOW* (06/08/16 7:26 AM) Hct [42.0-52.0 %] 36.1 % *LOW* (06/08/16 7:26 AM) MCV [82.0-99.0 fL] 89.4 fL (06/08/16 7:26 AM) MCH [27.0-32.0 pg] 28.0 pg (06/08/16 7:26 AM) MCHC [32.0-36.0 31.3 gm/dL gm/dL] *LOW* (06/08/16 7:26 AM) RDW [11.5-14.5 %] 15.6 % *HI* (06/08/16 7:26 AM) Platelet [150-400 176 10*3/uL 10*3/uL] (06/08/16 7:26 AM) MPV [9.4-12.3 fL] 9.7 fL (06/08/16 7:26 AM) Immature 0.3 % Granulocytes (06/08/16 7:26 AM) [0.0-1.0 %] Neutrophils [51-75 63 % %] (06/08/16 7:26 AM) Lymphocytes [20-46 23 % %] (06/08/16 7:26 AM) Monocytes [4-11 %] 9 % (06/08/16 7:26 AM) Eosinophils [0-4 %] 5 % *HI* (06/08/16 7:26 AM) Basophils [0-2 %] 1 % (06/08/16 7:26 AM) Neutro Absolute 4.12 10*3 [1.90-7.00 10*3] (06/08/16 7:26 AM) Lymph Absolute 1.48 10*3 [0.80-3.30 10*3] (06/08/16 7:26 AM) [place] Absolute 0.57 10*3 [0.30-1.00 10*3] (06/08/16 7:26 AM) Eos Absolute 0.33 10*3 [0.00-0.50 10*3] (06/08/16 7:26 AM) Baso Absolute 0.03 10*3 [0.00-0.20 10*3] (06/08/16 7:26 AM) Nucleated RBC 0.0 /100 WBC Automated [0 /100 (06/08/16 7:26 AM) WBC] Chemistry Most recent to 1 oldest [Reference Range]: Sodium Lvl [136-144 131 mEq/L mEq/L] *LOW* (06/08/16:26 AM) Potassium Lvl 4.8 mEq/L [3.6-5.1 mEq/L] (06/08/16 7:26 AM) Chloride [99-109 96 mEq/L mEq/L] *LOW* (06/08/16: AM) CO2 [22-32 mEq/L] 20 mEq/L *LOW* (06/08/16 7:26 AM) AGAP [3-20] 15 (06/08/16 7:26 AM) BUN [4-20 mg/dL] 58 mg/dL *HI* (06/08/16 7:26 AM) Glucose Lvl [70-100 198 mg/dL mg/dL] *HI* (06/08/16 7:26 AM) Creatinine Lvl 6.38 mg/dL [0.64-1.27 mg/dL] *HI* (06/08/16 7:26 AM) eGFR [>60] 8 1 *ABN* (06/08/16 7:26 AM) Calcium Lvl 8.3 mg/dL [8.6-10.0 mg/dL] *LOW* (11/11/16 7:26 AM) Albumin Lvl [3.5-4.8 3.2 gm/dL gm/dL] *LOW* (06/08/16 7:26 AM) Magnesium Lvl 2.5 mg/dL [1.8-2.5 mg/dL] (06/06/16 6:05 AM) Phosphorus [2.4-4.7 7.9 mg/dL 2 mg/dL] *HI* (06/08/16 7:26 AM) Blood Glucose, 189 mg/dL Capillary [74-106 *HI* mg/dL] (06/08/16 5:16 PM) 1Result Comment: Multiply eGFR results by 1.21 for race. 2Result Comment: High dosages of liposomal Amphotericin B (AmBisome) therapy or other drug preparations that use a liposomal envelope to facilitate drug delivery may cause falsely elevated results for phosphorus. Immunizations Vaccine Date Refusal Reason influenza virus vaccine, inactivated1 05/26/14 influenza virus vaccine, live 04/14/13 influenza virus vaccine, live 05/20/12 pneumococcal 13-valent conjugate vaccine 05/22/16 pneumococcal 23-polyvalent vaccine 07/03/11 pneumococcal 23-polyvalent vaccine 08/01/04 tetanus/diphtheria/pertussis, acel(Tdap) 02/24/13 tetanus/diphtheria/pertussis, acel(Tdap) 11/18/12 tetanus-diphth toxoids (Td) adult/adol 08/01/04 1Result Comment: [05/26/2014] see scanned document Procedures Procedure Date Related Diagnosis Body Site Debridement Wound (Right)1 06/05/16 Creation Fistula Arterial Venous Arm (Right, 05/03/16 Upper Extremity)2 Creation Fistula Arterial Venous Arm (Right, 03/15/16 Upper Extremity)3 Excision skin SQ Cell Ca 2011 CABG - Coronary artery bypass graft 2002 Cataract extraction Shunt left forearm4 1auto-populated from documented surgical case 2auto-populated from documented surgical case 3auto-populated from documented surgical case 4Left forearm. Preparation for dialysis. Social History Social History Type Response Smoking Status Former smoker; Type: Cigarettes Assessment and Plan No data available for this section
--- OUTSIDE RECORDS SUMMARY | 2016-11-22 09:26 | XMS REPORT | Continuity of Care Document ---
Author Author [facility] Organization [facility] Address Unknown Phone Unavailable Support Name Relationship Address Phone PATRICK GUTIÉRREZ DO Caregiver [address] [place] [address] Unavailable TAMERA FAULKNER MD Caregiver [address] [place] [address] Unavailable ROSALIA GARSIA Next Of Kin [address] [place] [address] Insurance Providers Guarantor Maciej Coleman Address [address] [place] [address] Email DENIED/NO TO [facility] Policy Number [id number] Subscriber's Name Maciej Coleman Relationship 18 Self Group Number [id number] Payer Medicare Policy Number [id number] Subscriber's Name Maciej Coleman Relationship 18 Self Chief Complaint and Reason for Visit Chief Complaint Skin Rash/Abscess Reason for Visit Surgically constructed arteriovenous fistula Wound drainage Problems Active Problems Medical Problem Onset Date Status Abdominal wall pain Unknown Acute Anterior epistaxis Unknown Acute CAD (coronary artery disease) Unknown CKD (chronic kidney disease) stage 5, GFR less than 15 ml/min Unknown Acute Chronic renal failure syndrome Unknown Acute Congestive Heart Failure not otherwise specified Unknown Acute Diabetes Unknown Diastolic CHF, chronic Unknown Acute HTN (hypertension) Unknown Hypocalcemia Unknown Acute IDDM Unknown Acute Influenza A Unknown Acute Influenza A Unknown Acute Pneumonia Unknown Acute Pneumonia LLL Unknown Acute RLL pneumonia Unknown Acute RLL pneumonia Unknown Acute Past Problems Medical Problem Onset Date Contusion of rib on left side Unknown Fall Unknown Surgically constructed arteriovenous fistula Unknown Wound drainage Unknown Medications Current Home Medications Medication Dose Units Route Directions Days Qty Instructions Start Date Amlodipine Besylate 5 Mg Tablet 5 Mg Oral Daily 04/04/16 Aspirin (Aspirin Ec) 325 Mg Tablet 325 Mg Oral Daily 11/02/10 Calcium Acetate 667 Mg Tablet 667 Mg Oral Three Times A Day 04/04 Cholecalciferol (Vitamin D3) 1,000 Unit Tablet 1,000 Unit Oral Daily 04/04/16 Furosemide 80 Mg Tablet 80 Mg Oral Daily 04/04/16 Insulin Glargine (Lantus) 100 U/Ml Vial 80 Unit Sub-Q Bedtime 02/05 Insulin Regular, Human (Novolin R) 100 Unit/1 Ml Vial 28 Unit Sub-Q Three Times Daily With Meals 04/04/16 Lactulose 10 Gm/15 Ml Solution 15 Ml Oral Daily 04/04/16 Multivitamins (Multivitamin) 1 Tab Tablet 1 Tab Oral Daily Oxycodone Hcl/Acetaminophen (Oxycodone-Acetaminophen 5-325) 5-325 Tablet 2 Tab Oral Every 4 Hours as needed for Pain 05/04/16 Pentoxifylline 400 Mg Tablet.sa 400 Mg Oral Twice A Day 11/02/10 Polyethylene Glycol 3350 255 Gm Powder 17 Gm Oral Daily 05/04/16 Potassium Chloride (Klor-Con 10) 10 Meq Tablet.sa 20 Meq Oral Daily 11/02/10 Simvastatin 20 Mg Tablet 20 Mg Oral Bedtime 05/04/16 Social History Social History Problem Response Recorded Date/Time Onset Date Status Hx Alcohol Use No 05/04/2016 3:05pm Not Applicable Not Applicable Has the pt used tobacco in the last 12 months No 09/15/2013 11:00pm Not Applicable Not Applicable Tobacco Usage none 08/22/2014 12:40am Not Applicable Not Applicable Query Response Start Date Stop Date Smoking Status Former smoker Hospital Discharge Instructions No hospital discharge instructions. Plan of Care Discharge Date 05/04/16 6:00pm Disposition 01 DISCHARGED HOME, SELF-CARE Condition at Discharge Improved Instructions/Education Provided DI for Arteriovenous Fistula for Dialysis Prescriptions See Medication Section Referrals TAMERA FAULKNER MD Address: [address] [place] [address] [phone] Additional Instructions/Education 1. Keep right arm propped up on 2-3 pillow over the weekend. This will help with swelling and pain. 2. Call Dr. Cortes's office at [phone] first thing Saturday morning to arrange a follow up appointment for that same day 3. If your arm begins to drain purulent drainage or straight blood, you need to come back to the ER. 4. If you develop fever greater than 101.5, call Dr restaurant operations manager for Dr. Cortes. Care Plan and Goals Physician Care Plan Problem: Surgical wound drainage Goal: Follow up with primary care provider Instructions: Take medications and follow care plan as discussed/written Functional Status No functional status results. Allergies, Adverse Reactions, Alerts Allergen Type Severity Reaction Status Last Updated Penicillin Allergy Unknown Active 09/04/14 Levofloxacin Allergy Unknown Active 09/04/14 Immunizations Query Response on File Recorded Date/Time Hx Influenza Vaccination Y fall 201209/04/14 11:50pm Hx Pneumococcal Vaccination Y Doesn't remember when, within last 5 years 02/09 11:50pm Hx Influenza Vaccination Y fall 201209/04/14 11:50pm Vital Signs Acute Vital Signs Vital Response Date/Time Temperature (Fahrenheit) 99.0 deg F (96.8 - 99.1) 05/04/2016 6:00pm Temperature (Calculated Celsius) 37.30918 degrees C (36.0 - 37.3) 05/04/2016 6:00pm Pulse Rate (adult) 90 bpm (60 - 100) 05/04/2016 6:00pm Respiratory Rate 24 breaths/min (10 - 20) 05/04/2016 6:00pm O2 Sat by Pulse Oximetry 98 % (90 - 100) 05/04/2016 6:00pm Blood Pressure 135/60 mm Hg 05/04/2016 6:00pm Height (Feet) 5 feet 05/04/2016 3:05pm Height (Inches) 4.00 inches 05/04/2016 3:05pm Weight (Kilograms) 91.000 kg 05/04/2016 3:05pm Body Mass Index (BMI) 34.0 05/04/2016 3:05pm Results Laboratory Results Test Name Result Units Flags Reference Collection Date/Time Result Date/ Time Comments White Blood Count 8.3 T/MM3 4.5-11.0 05/04/2016 3:49pm 05/04/2016 3: 57pm Red Blood Count 3.84 M/MM3 L 4.50-5.90 05/04/2016 3:49pm 05/04/2016 3: 57pm Hemoglobin 11.1 GM/DL L 13.5-17.5 05/04/2016 3:49pm 05/04/2016 3:57pm Hematocrit 35.9 % L 41-53 05/04/2016 3:49pm 05/04/2016 3:57pm Mean Corpuscular Volume 93.5 UM3 80-100 05/04/2016 3:49pm 05/04/2016 3: 57pm Mean Corpuscular Hemoglobin 28.9 UUG 26-34 05/04/2016 3:49pm 2015 3:57pm Mean Corpuscular Hemoglobin Concent 30.9 GM/DL L 31-37 05/04/2016 3:49pm 05/04/2016 3:57pm RDW Standard Deviation 48.9 FL 36.9-50.2 05/04/2016 3:49pm 05/04/2016 3 :57pm Platelet Count 146 T/MM3 130-400 05/04/2016 3:49pm 05/04/2016 3:57pm Mean Platelet Volume 10.2 UM3 9.4-12.4 05/04/2016 3:49pm 05/04/2016 3: 57pm Neutrophils (%) (Auto) 76.5 % H 33-66 05/04/2016 3:49pm 05/04/2016 3: 57pm Lymphocytes (%) (Auto) 12.2 % L 23-45 05/04/2016 3:49pm 05/04/2016 3: 57pm Monocytes (%) (Auto) 8.9 % 0-9.0 05/04/2016 3:49pm 05/04/2016 3:57pm Eosinophils (%) (Auto) 1.6 % 0-4 05/04/2016 3:49pm 05/04/2016 3:57pm Basophils (%) (Auto) 0.4 % 0-2 05/04/2016 3:49pm 05/04/2016 3:57pm Immature Granulocyte % (Auto) 0.4 % 0.0-0.5 05/04/2016 3:49pm 2015 3:57pm Absolute Neutrophils (auto) 6.3 T/MM3 1.8-7.7 05/04/2016 3:49pm 2015 3:57pm Absolute Lymphocytes (auto) 1.0 T/MM3 1-4.8 05/04/2016 3:49pm 2015 3:57pm Absolute Monocytes (auto) 0.7 T/MM3 0-0.8 05/04/2016 3:49pm 05/04/2016 3:57pm Absolute Eosinophils (auto) 0.1 T/MM3 0-0.5 05/04/2016 3:49pm 2015 3:57pm Absolute Basophils (auto) 0.0 T/MM3 0-0.2 05/04/2016 3:49pm 05/04/2016 3:57pm Absolute Immature Granulocyte (auto 0.03 T/MM3 0.00-0.03 05/04/2016 3: 49pm 05/04/2016 3:57pm Icterus Index < 2 0-7 05/04/2016 3:49pm 05/04/2016 4:06pm Chemistry Specimen Hemolysis < 15 0-25 05/04/2016 3:49pm 05/04/2016 4 :06pm 0-25: Specimen Exhibited No Hemolysis. Turbidity < 20 0-20 05/04/2016 3:49pm 05/04/2016 4:06pm Sodium Level 140 MEQ/L 134-144 05/04/2016 3:49pm 05/04/2016 4:06pm Potassium Level 4.3 MEQ/L 3.6-5 05/04/2016 3:49pm 05/04/2016 4:06pm Chloride Level 96 MEQ/L L 98-107 05/04/2016 3:49pm 05/04/2016 4:06pm Carbon Dioxide Level 30 MEQ/L 22-30 05/04/2016 3:49pm 05/04/2016 4: 06pm Anion Gap 14 MEQ/L 5-15 05/04/2016 3:49pm 05/04/2016 4:06pm Blood Urea Nitrogen 24.0 MG/DL H 9-20 05/04/2016 3:49pm 05/04/2016 4: 06pm Creatinine 3.8 MG/DL H 0.8-1.5 05/04/2016 3:49pm 05/04/2016 4:06pm BUN/Creatinine Ratio 6 RATIO 6-26 05/04/2016 3:49pm 05/04/2016 4:06pm Glomerular Filtration Rate Calc 15 05/04/2016 3:49pm 05/04/2016 4: 06pm Glucose Level 242 MG/DL H 75-110 05/04/2016 3:49pm 05/04/2016 4:06pm Calculated Osmolality 281 MOSM/KG H 261-280 05/04/2016 3:49pm 2015 4:06pm Calcium Level 8.3 MG/DL L 8.4-10.2 05/04/2016 3:49pm 05/04/2016 4:06pm Total Bilirubin 0.90 MG/DL 0.20-1.30 05/04/2016 3:49pm 05/04/2016 4: 06pm Alkaline Phosphatase 101 U/L 38-126 05/04/2016 3:49pm 05/04/2016 4: 06pm Total Protein 7.5 G/DL 6.3-8.2 05/04/2016 3:49pm 05/04/2016 4:06pm Albumin 4.0 G/DL 3.5-5.0 05/04/2016 3:49pm 05/04/2016 4:06pm Globulin 3.5 G/DL 2.4-3.6 05/04/2016 3:49pm 05/04/2016 4:06pm Albumin/Globulin Ratio 1.1 RATIO 1.1-2.2 05/04/2016 3:49pm 05/04/2016 4 :06pm Aspartate Amino Transf (AST/SGOT) 22 U/L 17-59 05/04/2016 3:49pm 2015 4:06pm Alanine Aminotransferase (ALT/SGPT) 16 U/L L 21-72 05/04/2016 3:49pm 01/2016 4:06pm Plasma Lactate 1.9 MMOL/L 0.6-2.2 05/04/2016 3:49pm 05/04/2016 4:04pm Procalcitonin 1.00 NG/ML 05/04/2016 3:49pm 05/04/2016 4:23pm PCT </= 0.5 ng/mL - sepsis not likely; PCT >0.5 and </=2 ng/mL - sepsis possible; PCT >2 ng/mL - sepsis likely; PCT >/=10 ng/mL - systemic inflammatory response - sepsis or septic shock highly indicated. Microbiology Results Procedure Source Organism/Result Collection Date/Time Result Date/Time Result Status Blood Culture Peripheral/Iv Start CULTURE INITIATED - RESULTS PENDING 05/04 4:05pm 05/04/2016 4:20pm Preliminary Procedures Procedure Status Date Provider(s) X-RAY EXAM UNILAT RIBS/CHEST Completed 04/04/16 EMERGENCY DEPT VISIT Completed 04/04/16 [id number] ITEM OR SERVICE Completed 04/04/16 Encounters Encounter Location Arrival/Admit Date Discharge/Depart Date Attending Provider Departed Emergency Room [facility] 05/04/16 2:59pm 05/04/16 6: 00pm PATRICK GUTIÉRREZ DO Departed Emergency Room [facility] 04/04/16 4:32pm 04/04/16 7: 00pm SEBASTIAN SULTANA MD Recent Diagnosis
--- OUTSIDE RECORDS SUMMARY | 2016-11-22 09:26 | XMS REPORT | Referral Summary ---
Author Author [facility] Organization [facility] Address Unknown Phone Unavailable Care Team Providers Care Subject Scientific Research Name Role Phone Manuel Iyer Primary Care Physician [phone] Encounter VC Date(s): 05/22/16 - 05/22/16 [facility], [address] [place] [id number] Discharge Diagnosis: Chronic kidney disease (CKD), stage V Discharge Diagnosis: Coronary arteriosclerosis Discharge Diagnosis: Benign essential hypertension Discharge Diagnosis: Diabetic peripheral neuropathy Discharge Diagnosis: Hypercholesterolemia Discharge Diagnosis: Peripheral vascular disease Discharge Diagnosis: Obesity Discharge Diagnosis: Counseling regarding end of life decision making Discharge Disposition: 01-Home or Self Care Attending Physician: Corbin Iyer MD Admitting Physician: Corbin Iyer MD Vital Signs Most recent to 1 oldest [Reference Range]: Temperature Tympanic 36.3 degC [36.6-38.1 degC] *LOW* (05/22/16 10:42 AM) Peripheral Pulse 65 bpm Rate [60-100 bpm] (05/22/16 10:42 AM) Blood Pressure 142/55 mmHg [90-140/60-90 mmHg] *HI* (05/22/16 10:42 AM) Problem List Condition Effective Dates Status Health [...] Daily, # 473 mL, 6 Refill(s), Pharmacy: [facility] # [id number], 15 mL Oral Daily Start Date: 03/12/16 Stop Date: 03/12/17 Status: Ordered Lantus 84 units, SubCutaneous, Bedtime (once a day), 0 Refill(s) Start Date: 03/15/16 Status: Ordered MiraLax 17 g 1 packets, Oral, Daily, 0 Refill(s) Start Date: 05/03/16 Status: Ordered multivitamin Daily, 0 Refill(s) Start Date: 01/12/14 Status: Ordered NovoLIN R 100 units/mL injectable solution 28 units, SubCutaneous, TIDAC, RELION, # 3 mL, 3 Refill(s), Pharmacy: [id number], 28 units SubCutaneous TIDAC,Instr:RELION Start Date: 04/03/16 [...] Refill(s) Start Date: 02/10/15 Status: Ordered Results No data available for this section Immunizations Vaccine Date Refusal Reason influenza virus [...] Former smoker; Type: Cigarettes Assessment and Plan Extracted from: Title: CRMMP Author: Corbin Iyer MD Date: 05/22/16 Patient: MACIEJ DIMAS Age: 81 years Sex: Male : 1935 Associated Diagnoses: Benign essential hypertension; Chronic kidney disease ( CKD), stage V; Coronary arteriosclerosis; Diabetic peripheral neuropathy; Hypercholesterolemia; Peripheral vascular disease; Obesity; Counseling regarding end of life decision making Author: Corbin Iyer MD Visit Information Visit type: Scheduled follow-up. Accompanied by: No one. Source of history: Self. History limitation: None. Chief Complaint 05/22/2016 10:42 CDT CPE History of Present Illness Assessment and Plan: Overall patient appears to be stable on current regimen. No medication changes are needed at this time. Will complete FMLA paperwork and fax to employer. Encourage completion of advance directives and medical power of sports attorney. Obtain fasting lipid panel. Prevnar 13 given in clinic today. Follow up in 3 months, or sooner as needed. HPI: 81 year old gentleman here for complete review of multiple medical problems and comprehensive exam. Chronic issues: CAD: Denies chest pain, pressure, or palpitations. He is not followed by a administrative program specialist at this time. CKD Stage V: Patient is on dialysis secondary to renal failure. He is followed by Dr. Sy. Patient received a surgically constructed arteriovenous fistula for dialysis in right arm by Dr. Cortes in 04/2016. DIABETES: Lantis 80 units daily Novolin 84 units daily Glucose testing frequency: 3x/day Readings range/average: Fasting <200 Low blood sugars: None Diet: Avoids sweets Exercise: Regular Last A1c: Getting done through dialysis center, Last Eye exam: DUE, advised to schedule Last Foot exam : Done today HYPERLIPIDEMIA: Lipids reviewed from: 05/26/15, DUE Tri HDL: 42 LDL: 82 On simvastatin - no myalgias or other side effects. HYPERTENSION: 142/55 Checking BP's regularly at dialysis. No adverse effects from medications. No headaches, neurologic symptoms, lightheadedness, leg cramps. No chest pains, palpitations or shortness of air. ROS:Positive ROS addressed above. Remainder of complete/comprehensive ROS is negative. PFSH: Reviewed and updated as needed in EHR. PHYSICAL EXAM: Overall he appears in no acute distress. PERRLA. Red reflex normal bilaterally. Ear canals free of occlusion and TMs are clear. Nasal and oropharynx unremarkable. Neck supple without adenopathy, thyromegaly, or tracheal deviation. Lung sounds are clear. Heart regular rate with grade 2/6 systolic murmur at apex radiating to right intercostal space. Abdomen soft, nontender, without organomegaly. Extremities symmetrical without swelling. Peripheral pulses are absent in feet. Neurologic exam intact. Skin without suspicious lesions. Diabetic foot exam abnormal. Peripheral pulses not palpable, although capillary refill OK. No sensation on right foot, minimal sensation on left foot. Health Status Allergies: Allergic Reactions (Selected) Severity Not Documented Levofloxacin- Red rash. Penicillin- Rash. Current medications: (Selected) Prescriptions Prescribed NovoLIN R 100 units/mL injectable solution: 28 units, SubCutaneous, TIDAC, RELION, 3 mL, 3 Refill(s) lactulose 10 g/15 mL oral syrup: 10 g=15 mL, Oral, Daily, 473 mL, 6 Refill(s) Documented Medications Documented Colace 100 mg oral capsule: 100 mg=1 caps, Oral, BID, 0 Refill(s) Klor-Con: 20 mEq, Oral, Daily, 0 Refill(s) Lantus: 84 units, SubCutaneous, Bedtime (once a day), 0 Refill(s) MiraLax: 17 g=1 packets, Oral, Daily, 0 Refill(s) Percocet 5/325 oral tablet: 2 tabs, Oral, q4hr, PRN: Pain Moderate (4-6), 0 Refill(s) Senna S: 1 tabs, Oral, BID Vitamin D3 1000 intl units oral tablet: 1,000 Intl_Units=1 tabs, Oral, Daily, 30 tabs, 0 Refill(s) amLODIPine: 5 mg, Oral, Daily, 0 Refill(s) aspirin: 325 mg, Oral, Daily calcium acetate: 667 MG mg, Oral, TID, 0 Refill(s) furosemide: 80 mg, Oral, Daily, 0 Refill(s) multivitamin: Daily pentoxifylline: 400 mg, Oral, BID, 0 Refill(s) simvastatin: 20 mg, Oral, Daily, 0 Refill(s), Home Medications (16) Active amLODIPine 5 mg, Oral, Daily aspirin 325 mg, Oral, Daily calcium acetate 667 MG mg, Oral, TID Colace 100 mg oral capsule 100 mg=1 caps, Oral, BID furosemide 80 mg, Oral, Daily Klor-Con 20 mEq, Oral, Daily lactulose 10 g/15 mL oral syrup 10 g=15 mL, Oral, Daily Lantus 84 units, SubCutaneous, Bedtime (once a day) MiraLax 17 g=1 packets, Oral, Daily multivitamin , Daily NovoLIN R 100 units/mL injectable solution 28 units, SubCutaneous, TIDAC pentoxifylline 400 mg, Oral, BID Percocet 5/325 oral tablet 2 tabs, PRN, Oral, q4hr Senna S 1 tabs, Oral, BID simvastatin 20 mg, Oral, Daily Vitamin D3 1000 intl units oral tablet 1,000 Intl_Units=1 tabs, Oral, Daily Problem list: All Problems Actinic keratosis (disorder) / 6456742082 / Confirmed Benign essential hypertension (disorder) / 0090531 / Confirmed Benign hypertension / 56490259 / Confirmed Chronic kidney disease (CKD), stage V / 6122376050 / Confirmed Coronary arteriosclerosis (disorder) / 95783323 / Confirmed Diabetic peripheral neuropathy / 7896055863 / Confirmed Hypercholesterolemia / 25128421 / Confirmed Obesity / [id number] / Confirmed Peripheral vascular disease (disorder) / 1293440287 / Confirmed Pure hypercholesterolemia (disorder) / 631530464 / Confirmed 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 Anemia secondary to renal failure ([id number]): Resolved. Chronic renal insufficiency ([id number]): Resolved. CAD (coronary artery disease) (7297322699): Resolved. Diabetes ([id number]): Resolved. Hyperlipidemia (48365198): Resolved. Hypertension ([id number]): Resolved. Pancreatitis (522126781): Resolved. Venous Stasis dermatitis (QqKQGtJbh4JWXDflRhvANT): Resolved. Neuropathy ([id number]): Resolved. Kidney disease ([id number]): Resolved. Kidney stones ([id number]): Resolved. Family History: Alcoholism Brother Skin cancer Brother Procedure history: Creation Fistula Arterial Venous Arm (Right, Upper Extremity) on 05/03/2016 at 81 Years. Comments: 05/03/2016 10:26 - Angeline Alexandra RN auto-populated from documented surgical case Creation Fistula Arterial Venous Arm (Right, Upper Extremity) on 03/15/2016 at 81 Years. 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 CABG - Coronary artery bypass graft ([id number]) in 2002 at 68 Years. Cataract extraction ([id number]). Shunt left forearm ([id number]). Comments: 01/12/2014 11:42 - Corbin Iyer MD Left forearm. Preparation for dialysis. Social History Social & Psychosocial Habits Alcohol 01/12/2014 Use: Denies Employment/School Comment: [employer] - 01/12/2014 10:46 - Corbin Iyer MD Exercise 01/26/2016 Exercise type: Walking Home/Environment 01/12/2014 Lives with: Alone Nutrition/Health 01/26/2016 Type of diet: Regular Sexual 01/26/2016 Sexually active: No Substance Abuse 01/26/2016 Use: Denies Tobacco 05/21/2014 Use: Former smoker Type: Cigarettes . Physical Examination Vital Signs 05/22/2016 10:42 CDT Temperature Tympanic 36.3 degC LOW Peripheral Pulse Rate 65 bpm Systolic Blood Pressure 142 mmHg HI Diastolic Blood Pressure 55 mmHg LOW Measurements from flowsheet : Measurements 05/22/2016 10:42 CDT Height/Length Measured 162 cm Weight Measured 94.4 kg BSA Estimated 2.06 m2 Body Mass Index 35.97 kg/m2 Weight - lbs 208.116 lb Height - In 63.78 inch Health Maintenance Health Maintenance Pending (in the next year) OverDue Diabetes Maintenance-HgbA1C due 10/11/14 and every 3 months Hypertension Management-Blood Pressure Follow Up due 05/27/15 and every 6 months Diabetes Maintenance-Eye Exam due 12/17/15 and every 1 years Due Influenza Vaccine due 03/28/16 and every 1 years Colorectal Screening due 05/22/16 Variable frequency Diabetes Maintenance-Urine Dipstick due 05/22/16 and every 1 years Hypertension Management-Education due 05/22/16 Variable frequency Prostate Cancer Screening due 05/22/16 and every 1 years Zoster Vaccine due 05/22/16 One-time only Due In Future Diabetes Maintenance-Foot Exam not due until 02/15/17 and every 1 years Diabetes Maintenance-Footwear Education not due until 02/15/17 and every 1 years Hypertension Management-BMP not due until 05/03/17 and every 1 years Satisfied (in the past 1 year) Satisfied Diabetes Maintenance-Foot Exam on 02/16/16. Satisfied by Scanned Document Diabetes Maintenance-Foot Exam on 02/16/16. Satisfied by Scanned Document Diabetes Maintenance-Footwear Education on 02/16/16. Satisfied by Scanned Document Diabetes Maintenance-Footwear Education on 02/16/16. Satisfied by Scanned Document Diabetes Maintenance-HgbA1c on 11/17/15. Satisfied by Corbin Iyer MD Diabetes Maintenance-Lipid Panel on 05/26/15. Satisfied by CONTRIBUTOR_SYSTEM, [employer] Diabetes Maintenance-Lipid Panel on 05/26/15. Satisfied by CONTRIBUTOR_SYSTEM, [employer] Diabetes Maintenance-Lipid Panel on 05/26/15. Satisfied by CONTRIBUTOR_SYSTEM, [employer] Diabetes Maintenance-Lipid Panel on 05/26/15. Satisfied by Corbin Iyer MD Hypertension Management-BMP on 05/03/16. Satisfied by CONTRIBUTOR_ SYSTEM, [employer] Hypertension Management-BMP on 05/03/16. Satisfied by CONTRIBUTOR_ SYSTEM, [employer] Hypertension Management-BMP on 05/03/16. Satisfied by CONTRIBUTOR_ SYSTEM, [employer] Hypertension Management-BMP on 05/03/16. Satisfied by CONTRIBUTOR_ SYSTEM, [employer] Hypertension Management-BMP on 05/03/16. Satisfied by CONTRIBUTOR_ SYSTEM, [employer] Hypertension Management-BMP on 05/03/16. Satisfied by CONTRIBUTOR_ SYSTEM, [employer] Hypertension Management-BMP on 05/03/16. Satisfied by CONTRIBUTOR_ SYSTEM, [employer] Hypertension Management-BMP on 05/03/16. Satisfied by CONTRIBUTOR_ SYSTEM, [employer] Hypertension Management-BMP on 05/03/16. Satisfied by CONTRIBUTOR_ SYSTEM, [employer] Hypertension Management-BMP on 05/03/16. Satisfied by CONTRIBUTOR_ SYSTEM, [employer] Hypertension Management-BMP on 05/03/16. Satisfied by Julio Cortes MD Hypertension Management-BMP on 03/15/16. Satisfied by CONTRIBUTOR_ SYSTEM, [employer] Hypertension Management-BMP on 03/15/16. Satisfied by CONTRIBUTOR_ SYSTEM, [employer] Hypertension Management-BMP on 03/15/16. Satisfied by CONTRIBUTOR_ SYSTEM, [employer] Hypertension Management-BMP on 03/15/16. Satisfied by CONTRIBUTOR_ SYSTEM, [employer] Hypertension Management-BMP on 03/15/16. Satisfied by CONTRIBUTOR_ SYSTEM, [employer] Hypertension Management-BMP on 03/15/16. Satisfied by CONTRIBUTOR_ SYSTEM, [employer] Hypertension Management-BMP on 03/15/16. Satisfied by CONTRIBUTOR_ SYSTEM, [employer] Hypertension Management-BMP on 03/15/16. Satisfied by CONTRIBUTOR_ SYSTEM, [employer] Hypertension Management-BMP on 03/15/16. Satisfied by CONTRIBUTOR_ SYSTEM, [employer] Hypertension Management-BMP on 03/15/16. Satisfied by CONTRIBUTOR_ SYSTEM, [employer] Hypertension Management-BMP on 03/15/16. Satisfied by Julio Cortes MD Hypertension Management-BMP on 11/17/15. Satisfied by Corbin Iyer MD Review / Management Documentation reviewed: Reviewed prior records, Flowsheet, Reviewed home medications. Impression and Plan Diagnosis Benign essential hypertension (WOG76-HN I10, Discharge, Medical). Chronic kidney disease (CKD), stage V (XWV89-XI N18.5, Discharge, Medical). Coronary arteriosclerosis (TYZ30-XX I25.10, Discharge, Medical). Diabetic peripheral neuropathy (IUK23-YP E11.42, Discharge, Medical). Hypercholesterolemia (JPI60-WF E78.00, Discharge, Medical). Peripheral vascular disease (EPG40-PM I73.9, Discharge, Medical). Obesity (SQC37-QF E66.9, Discharge, Medical). Counseling regarding end of life decision making (MXS68-DV Z71.89, Discharge, Medical). Orders Orders (Selected) Outpatient Orders Future (On Hold) Fasting Lipid Profile: Fasting Lipid Profile: . Professional Services 05/22/2016 11:24 This note is prepared by Courtney Galdamez, acting as a biomedical equipment tech for Dr. Corbin Iyer. The documentation recorded by the scribe reflects the service I personally performed and the decisions made by me. Addendum Addendum: He did discuss end-of-life decision-making and advanced directives. I explained by the purpose of advanced directives, no CODE BLUE, living will, and DPOA for healthcare. [place], His daughter, Kiley, is a nurse and would probably be his DPOA agent. He was given a Corbin V handout with each of these documents and will think about it, letting us know if he MD on completes any of these forms or finalizes these decisions. May 22, 2016 17:34 CDT
--- OUTSIDE RECORDS SUMMARY | 2016-11-22 09:27 | XMS REPORT | Continuity of Care Document ---
Author Author [facility] Organization [facility] Address Unknown Phone Unavailable Allergies Active Description Code Type Severity Reaction Onset Reported/Identified Relationship to Patient Clinical Status Yes levofloxacin NKMA N/A RED RASH 11/25/2013 Yes penicillin NKMA N/A Rash 11/25/2013 Medications Problems Procedures Results Test Result Range Glucose NPT - 06/05/16 19:34 Glucose NPT 110 mg/dL 70-100 Glucose NPT - 06/05/16 21:50 Glucose NPT 48 mg/dL 70-100 Glucose NPT - 06/05/16 22:06 Glucose NPT 239 mg/dL 70-100 Glucose NPT - 06/06/16 00:23 Glucose NPT 118 mg/dL 70-100 Glucose NPT - 06/06/16 02:34 Glucose NPT 47 mg/dL 70-100 Glucose NPT - 06/06/16 03:01 Glucose NPT 64 mg/dL 70-100 Glucose NPT - 06/06/16 03:45 Glucose NPT 76 mg/dL 70-100 Glucose NPT - 06/06/16 05:22 Glucose NPT 107 mg/dL 70-100 CBC With Platelet No Differential - 06/06/16 06:05 HCT 33.3 % 42.0-52.0 HGB 10.4 g/dL 14.0-18.0 MCH 28.2 pg 27.0-32.0 MCHC 31.2 g/dL 32.0-36.0 MCV 90.2 fL 82.0-99.0 MPV 9.5 fL 9.4-12.3 Platelet Count 165 K/uL 150-400 RBC 3.69 10*6/uL 4.60-6.20 RDW 15.7 % 11.5-14.5 WBC 6.7 K/uL 4.8-10.8 Renal Function Panel - 06/06/16 06:05 Albumin 2.9 g/dL 3.5-4.8 Anion Gap 12 NA 3-20 BUN 54 mg/dL 4-20 Calcium 7.9 mg/dL 8.6-10.0 Chloride 99 mEq/L 99-109 CO2 25 mEq/L 22-32 Creatinine 6.23 mg/dL 0.64-1.27 Glucose 97 mg/dL 70-100 Phosphorus 7.6 mg/dL 2.4-4.7 Potassium 3.9 mEq/L 3.6-5.1 Sodium 136 mEq/L 136-144 Magnesium - 06/06/16 06:05 Magnesium 2.5 mg/dL 1.8-2.5 eGFR - 06/06/16 06:05 eGFR 9 NA >60 Glucose NPT - 06/06/16 08:01 Glucose NPT 63 mg/dL 70-100 Glucose NPT - 06/06/16 08:34 Glucose NPT 78 mg/dL 70-100 Glucose NPT - 06/06/16 11:04 Glucose NPT 182 mg/dL 70-100 Glucose NPT - 06/06/16 18:38 Glucose NPT 105 mg/dL 70-100 Glucose NPT - 06/06/16 21:04 Glucose NPT 367 mg/dL 70-100 Glucose NPT - 06/06/16 21:27 Glucose NPT 351 mg/dL 70-100 Glucose NPT - 06/07/16 02:28 Glucose NPT 261 mg/dL 70-100 Glucose NPT - 06/07/16 05:25 Glucose NPT 222 mg/dL 70-100 Glucose NPT - 06/07/16 09:56 Glucose NPT 216 mg/dL 70-100 Glucose NPT - 06/07/16 15:10 Glucose NPT 153 mg/dL 70-100 Glucose NPT - 06/07/16 20:34 Glucose NPT 122 mg/dL 70-100 Glucose NPT - 06/07/16 20:51 Glucose NPT 112 mg/dL 70-100 Glucose NPT - 06/07/16 23:43 Glucose NPT 54 mg/dL 70-100 Glucose NPT - 06/08/16 00:38 Glucose NPT 154 mg/dL 70-100 Glucose NPT - 06/08/16 05:50 Glucose NPT 183 mg/dL 70-100 CBC With Platelet and Differential - 06/08/16 07:26 Absolute Basophils 0.03 10*3 0.00-0.20 Absolute Eosinophils 0.33 10*3 0.00-0.50 Absolute Lymphocytes 1.48 10*3 0.80-3.30 Absolute Monocytes 0.57 10*3 0.30-1.00 Absolute Neutrophils 4.12 10*3 1.90-7.00 Basophils 1 % 0-2 Eosinophils 5 % 0-4 HCT 36.1 % 42.0-52.0 HGB 11.3 g/dL 14.0-18.0 Immature Granulocytes 0.3 % 0.0-1.0 Lymphocytes 23 % 20-46 MCH 28.0 pg 27.0-32.0 MCHC 31.3 g/dL 32.0-36.0 MCV 89.4 fL 82.0-99.0 Monocytes 9 % 4-11 MPV 9.7 fL 9.4-12.3 Neutrophils 63 % 51-75 Nucleated RBC Automated 0.0 /100 WBC Platelet Count 176 K/uL 150-400 RBC 4.04 10*6/uL 4.60-6.20 RDW 15.6 % 11.5-14.5 WBC 6.6 K/uL 4.8-10.8 Renal Function Panel - 06/08/16 07:26 Albumin 3.2 g/dL 3.5-4.8 Anion Gap 15 NA 3-20 BUN 58 mg/dL 4-20 Calcium 8.3 mg/dL 8.6-10.0 Chloride 96 mEq/L 99-109 CO2 20 mEq/L 22-32 Creatinine 6.38 mg/dL 0.64-1.27 Glucose 198 mg/dL 70-100 Phosphorus 7.9 mg/dL 2.4-4.7 Potassium 4.8 mEq/L 3.6-5.1 Sodium 131 mEq/L 136-144 eGFR - 06/08/16 07:26 eGFR 8 NA >60 Glucose NPT - 06/08/16 09:44 Glucose NPT 190 mg/dL 70-100 Glucose NPT - 06/08/16 17:15 Glucose NPT 189 mg/dL 70-100 i-STAT Metabolic Panel WB - 07/10/16 15:25 BUN Venous 40 mg/dl 4-20 Calcium Ionized Venous 0.97 mmol/L 1.19- 1.41 Creatinine Venous 5.5 mg/dL 0.7-1.2 Glucose Venous 340 mg/dL 70-100 Potassium, WB 3.5 mmol/L 3.6-5.1 Sodium Venous 140 mmol/L 136-144 Total CO2 Venous 23 mmol/L 25-29 Venous CL 99 mmol/L 99-109 CBC With Platelet and Differential - 07/10/16 15:25 Absolute Basophils 0.04 10*3/uL 0.00- 0.30 Absolute Eosinophils 0.19 10*3 0.00-0.60 Absolute Lymphocytes 1.05 10*3 1.00-4.00 Absolute Monocytes 0.72 10*3 0.20-0.80 Absolute Neutrophils 3.84 10*3 2.50-7.00 Basophils 1 % 0-2 Eosinophils 3 % 0-6 HCT 35.2 % 40.0-54.0 HGB 11.1 g/dL 12.0-16.0 Lymphocytes 18 % 20-40 MCH 28.7 pg 26.0-34.0 MCHC 31.5 g/dL 32.0-36.0 MCV 91.0 fL 80.0-96.0 Monocytes 12 % 4-8 MPV 9.5 fL 8.8-14.8 Neutrophils 66 % 50-70 Platelet Count 170 K/uL 150-400 RBC 3.87 10*6/uL 3.70-5.20 RDW 16.7 % 0.0-14.5 WBC 5.8 K/uL 5.0-10.0 Encounters ACCT No. Visit Date/Time Discharge Status Pt. Type Provider Facility Loc./Unit Complaint [id number] 10/13/2013 10:09:00 10/13/2013 23 :59:59 CLS Outpatient [id number] 09/30/2013 09:37:00 09/30/2013 23 :59:59 CLS Outpatient [id number] 09/23/2013 09:26:00 09/23/2013 23 :59:59 CLS Outpatient
--- OUTSIDE RECORDS SUMMARY | 2016-11-22 09:27 | XMS REPORT | Referral Summary ---
Author Author [facility] Organization [facility] Address Unknown Phone Unavailable Care Team Providers Care Paper Mill Supervisor Name Role Phone Manuel Iyer Primary Care Physician [phone] Encounter VC Date(s): 08/02/16 - 08/02/16 [facility], [address] [place] [address] Discharge Diagnosis: Chronic kidney disease (CKD), stage V Discharge Diagnosis: Coronary arteriosclerosis Discharge Diagnosis: History of delayed wound healing Discharge Disposition: 01-Home or Self Care Attending Physician: Corbin Iyer MD Admitting Physician: Corbin Iyer MD Vital Signs Most recent to 1 oldest [Reference Range]: Peripheral Pulse 78 bpm Rate [60-100 bpm] (08/02/16 9:36 AM) Blood Pressure 110/42 mmHg [90-140/60-90 mmHg] (08/02/16 9:36 AM) Problem List Condition Effective Dates Status [...] Daily, # 473 mL, 6 Refill(s), Pharmacy: [facility] # [id number], 15 mL Oral Daily Start Date: 03/12/16 Stop Date: 03/12/17 Status: Ordered Lantus 100 units/mL subcutaneous solution 80 units, SubCutaneous, Bedtime (once a day), 0 Refill(s) Start Date: 08/02/16 Status: Ordered multivitamin Oral, Daily, 0 Refill(s) Start Date: 01/12/14 Status: Ordered NovoLIN R 100 units/mL injectable solution 28 units, SubCutaneous, TIDAC, RELION, # 3 mL, 3 Refill(s), Pharmacy: [id number], 28 units SubCutaneous TIDAC,Instr:RELION Start Date: 04/03/16 Status: Ordered pentoxifylline 400 mg, Oral, BID, 0 Refill(s) Start Date: 03/15/16 Status: Ordered simvastatin 40 mg oral tablet See Instructions, TAKE ONE TABLET BY MOUTH EVERY DAY, # 90 tabs, eRx: [facility] #[id number], TAKE ONE TABLET BY MOUTH EVERY DAY Start Date: 06/25/16 Status: Ordered Vitamin D3 1000 intl units oral tablet 1,000 Intl_Units 1 tabs, Oral, Daily, # 30 tabs, 0 Refill(s) Start Date: 02/10/15 Status: Ordered Results No data available for this section Immunizations Given and Recorded Vaccine Date Status Refusal Reason influenza virus vaccine, inactivated1 05/26/14 Recorded influenza virus vaccine, live 04/14/13 Given influenza virus vaccine, live 05/20/12 Given pneumococcal 13-valent conjugate vaccine 05/22/16 Given pneumococcal 23-polyvalent vaccine 07/03/11 Recorded pneumococcal 23-polyvalent vaccine 08/01/04 Recorded tetanus/diphtheria/pertussis, acel(Tdap) 02/24/13 Recorded tetanus/diphtheria/pertussis, acel(Tdap) 11/18/12 Recorded tetanus-diphth toxoids (Td) adult/adol 08/01/04 Given 1Result Comment: [05/26/2014] see scanned document Procedures [...] Cigarettes Assessment and Plan Extracted from: Title: OV Author: Corbin Iyer MD Date: 08/02/16 Impression and Plan Diagnosis History of delayed wound healing (FWY55-YX Z87.898, Discharge, Medical). Chronic kidney disease (CKD), stage V (UDD09-TV N18.5, Discharge, Medical). Coronary arteriosclerosis (TSW68-BT I25.10, Discharge, Medical).
--- OUTSIDE RECORDS SUMMARY | 2016-11-22 09:27 | XMS REPORT | Referral Summary ---
Author Author [facility], Family Medicine Organization [facility] Address Unknown Phone Unavailable Care Team Providers Care Traffic Ii Manager Name Role Phone Manuel Iyer Primary Care Physician [phone] Encounter VC Date(s): 08/23/16 - 08/23/16 [facility], Family [address] [place] [id number] Discharge Diagnosis: Diabetic peripheral neuropathy Discharge Diagnosis: Peripheral vascular disease Discharge Disposition: 01-Home or Self Care Attending Physician: Corbin Iyer MD Admitting Physician: Corbin Iyer MD Vital Signs Most recent to 1 oldest [Reference Range]: Peripheral Pulse 90 bpm Rate [60-100 bpm] (08/23/16 9:16 AM) Blood Pressure 140/60 mmHg [90-140/60-90 mmHg] (08/23/16 9:16 AM) Problem List Condition Effective Dates Status [...] Active penicillin Rash Active Medications amLODIPine 5 mg oral tablet See Instructions, TAKE ONE TABLET BY MOUTH DAILY, # 30 tabs, 4 Refill(s), eRx: [facility] #[id number], TAKE ONE TABLET BY MOUTH DAILY Start Date: 08/16/16 Status: Ordered aspirin 325 mg, Oral, Daily, [...] Daily, # 473 mL, 6 Refill(s), Pharmacy: [facility] # [id number], 15 mL Oral Daily Start Date: 03/12/16 Stop Date: 03/12/17 Status: Ordered Lantus 100 units/mL subcutaneous solution 80 units, SubCutaneous, Bedtime (once a day), 0 Refill(s) Start Date: 08/02/16 Status: Ordered multivitamin Oral, Daily, 0 Refill(s) Start Date: 01/12/14 Status: Ordered NovoLIN R 100 units/mL injectable solution 28 units, SubCutaneous, TIDAC, RELION, # 3 mL, 3 Refill(s), Pharmacy: [id number], 28 units SubCutaneous TIDAC,Instr:RELION Start Date: 04/03/16 Status: Ordered pentoxifylline 400 mg, Oral, BID, 0 Refill(s) Start Date: 03/15/16 Status: Ordered simvastatin 40 mg oral tablet See Instructions, TAKE ONE TABLET BY MOUTH EVERY DAY, # 90 tabs, eRx: [facility] #[id number], TAKE ONE TABLET BY MOUTH EVERY DAY [...] Cigarettes Assessment and Plan Extracted from: Title: CDM- DM Author: Corbin Iyer MD Date: 08/23/16 Impression and Plan Diagnosis Diabetic peripheral neuropathy ([id number] E11.42, Discharge, Medical). Peripheral vascular disease ([id number]-JE I73.9, Discharge, Medical).
[2016-11-22 10:03] LABS: BASOPHILS % (AUTO) 0.5 % (0-2); EOSINOPHILS # (AUTO) 0.2 T/MM3 (0-0.5); EOSINOPHILS % (AUTO) 3.5 % (0-4); HCT - HEMATOCRIT 37.8 % (41-53); HGB - HEMOGLOBIN 12.2 GM/DL (13.5-17.5); IMMATURE GRANULOCYTE # (AUTO) 0.01 T/MM3 (0.00-0.03); IMMATURE GRANULOCYTE % (AUTO) 0.2 % (0.0-0.5); LYMPHOCYTES # (AUTO) 1.9 T/MM3 (1-4.8); LYMPHOCYTES % (AUTO) 29.4 % (23-45); MEAN CORPUSCULAR HGB 28.2 UUG (26-34); MEAN CORPUSCULAR HGB CONC(MCHC 32.3 GM/DL (31-37); MEAN CORPUSCULAR VOLUME 87.3 UM3 (80-100); MEAN PLATELET VOLUME 9.7 UM3 (9.4-12.4); MONOCYTES # (AUTO) 0.6 T/MM3 (0-0.8); MONOCYTES % (AUTO) 8.6 % (0-9.0); NEUTROPHILS #(AUTO)-ABSOLUTE 3.7 T/MM3 (1.8-7.7); NEUTROPHILS % (AUTO) 57.8 % (33-66); RED BLOOD COUNT 4.33 M/MM3 (4.50-5.90); WBC - WHITE BLOOD COUNT 6.4 T/MM3 (4.5-11.0)
[2016-11-22] MEDS ORDERED: AURYXIA PO (10:03)
[2016-11-22 10:14] LABS: ALBUMIN/GLOBULIN RATIO 1.2 RATIO (1.1-2.2); ALKALINE PHOSPHATASE 129 U/L (38-126); ALT (SGPT) 21 U/L (21-72); ANION GAP 18 MEQ/L (5-15); AST (SGOT) 15 U/L (17-59); BUN/CREATININE RATIO 8 RATIO (6-26); CALCIUM 8.4 MG/DL (8.4-10.2); CHLORIDE 97 MEQ/L (98-107); CO2 - CARBON DIOXIDE 28 MEQ/L (22-30); CREATININE 5.1 MG/DL (0.8-1.5); GLOMERULAR FILTRATION RATE 11; GLUCOSE 413 MG/DL (75-110); POTASSIUM 3.9 MEQ/L (3.6-5); SODIUM 143 MEQ/L (134-144); TOTAL PROTEIN 7.3 G/DL (6.3-8.2)
--- NOTE | 2016-11-22 11:40 | ANESPREOP ---
Anesthesia Record Date and Time DATE: 11/22/16 TIME: 11:37 Pre-Op Diagnosis MULTIPAL SKIN LEASIONS Proposed Surgical Procedure EXCISION MULTIPLE SKIN LESIONS ARMS/FACE Allergies: Coded Allergies: Penicillins (Verified Allergy, Unknown, 09/04/14) levofloxacin (Verified Allergy, Unknown, 09/04/14) Ht/Wt/BMI Height: 5 ' 4.00 " Weight: 87.400 kg BMI: 33.1 kg/m2 Vital Signs Date Time Temp Pulse Resp B/P Pulse Ox O2 Delivery O2 Flow Rate FiO2 11/22/16 10:28 69 18 11/22/16 09:41 97.8 139/65 91 Room Air Medications Amlodipine Besylate (Amlodipine Besylate) 5 Mg Tablet, 5 MG PO DAILY, (Reported) Last Taken: on 11/21/16 0800 Aspirin EC (Aspirin Ec) 325 Mg Tablet.dr, 325 MG PO DAILY, (Reported) Last Taken: on 11/20/16 Calcium Acetate (Calcium Acetate) 667 Mg Tablet, 667 MG PO TID, (Reported) Cholecalciferol (Vitamin D3) 1,000 Unit Tablet, 1,000 UNIT PO DAILY, (Reported) Last Taken: on 11/21/16 0800 Insulin Glargine (Lantus) 100 U/Ml Vial, 80 UNIT SQ HS, (Reported) Last Taken: on 11/21/16 1800 Insulin Regular, Human (Novolin R) 100 Unit/1 Ml Vial, 28 UNIT SQ TIDWM, (Reported) Last Taken: on 11/21/16 1800 Lactulose (Lactulose) 10 Gm/15 Ml Solution, 15 ML PO DAILY, (Reported) Last Taken: on 11/15/16 Multivitamins (Multivitamin) 1 Tab Tablet, 1 TAB PO DAILY, (Reported) Last Taken: on 11/21/16 0800 Pentoxifylline (Pentoxifylline) 400 Mg Tablet.sa, 400 MG PO BID, (Reported) Last Taken: on 11/21/16 1800 Polyethylene Glycol 3350 (Polyethylene Glycol 3350) 255 Gm Powder, 17 GM PO DAILY, (Reported) Last Taken: on 11/15/16 Simvastatin (Simvastatin) 20 Mg Tablet, 20 MG PO HS , (Reported) Last Taken: on 11/21/16 2100 [Auryxia] , 210 MG PO 2 TABS 3X A DAY , ( Reported) Last Taken: on 11/21/16 2100 Discontinued Medications Oxycodone HCl/Acetaminophen (Oxycodone-Acetaminophen 5-325) 5-325 Tablet, 2 TAB PO Q4H PRN for PAIN, (Reported) Currently on Beta Letty: No Medical/Surgical History Anesthesia PMH: Reports: *Diabetes, *Hypertension, *CT (AT LEAST 15 YEARS AGO) , CVA/Stroke/TIA, Cancer ("few skin cancers"), Obesity, Renal Disease (ckd stage V- CURRENTLY ON DIALYSIS), Denies: *Angina, Anesthesia Reactions (NO PROBLEMS), Asthma, Blood Transfusion Reac, CHF, COPD, Clotting Problems, Glaucoma, Hiatal Hernia, Malignant Hyperthermia, Pacemaker, Pneumonia, Reflux, Seizures, Thyroid Disease, Tuberculosis Smoking Status: Former smoker Has pt. smoked today?: No Use Chewing Tobacco?: No Second Hand Exposure: No Substance Use Type: does not use Substance last used: unknown Last Drink: unknown Past Surgical History Orthopedic Surgeries: No Abdominal Surgeries: No Genitourinary Surgeries: No Cardiac Surgeries: Yes - QUADRUPLE BIPASS 2002 Endocrine Surgeries: Yes - removal of skin cancer Reproductive Surgeries: No Neurological Surgeries: No Ear Surgeries: No Nose Surgeries: No Throat Surgeries: No Other Surgeries: Yes - CAT, SHUNT, FISTULA ARTERIAL VENOUS UPPPER R. ARM PER H&P Anesthesia Adverse Reactions: FOUND none Family Hx of Anesthesia Advers: none Hx of Motion Sickness: No Pertinent Findings Laboratory Tests 11/22/16 09:45 EKG Rhythm: Sinus Rhythm Physical Exam Respiratory: Bilat breath sounds equal, Lungs clear Cardiovascular: FOUND Regular rate, rhythm, FOUND No murmur Airway Assessment Mallampati Score: II TMD: 2 Fingerbreadths Neck Extension: Fair Teeth: Upper Dentures, Lower Dentures Overall Assessment: May Be Diff Mask Vent., May Be Diff Intubation ASA: 3 Plan Anesthesia Plan: MAC Discussion Discussed risks/options/alternatives of anesthesia and questions answered. Patient consents. Nursing pain assessment noted. Attestation Statement Prior to the delivery of any anesthetic medication, I examined the patient, developed the plan, obtained the patient's consent and discussed the risk and benefits of the procedure with the patient/guardian. ARAMIS BILL CRNA Nov 22, 2016 11:39
[2016-11-22] MEDS ORDERED: BUPIVACAINE 0.25%/EPI 1:200,000 30ml SDV ONE (12:27)
[2016-11-22] MEDS ORDERED: INSULIN ASPART 100 UNIT/ML SQ ONE ×2 (12:45→14:30)
[2016-11-22] MEDS ORDERED: MIDAZOLAM 2mg/2ml INJECTION ONE ×2 (13:00→13:25)
[2016-11-22] MEDS ORDERED: FENTANYL 100mcg/2ml INJECTION ONE (13:00)
[2016-11-22] MEDS ORDERED: HYDR-4246 PO (14:17)
--- NOTE | 2016-11-22 15:26 | ANESPO ---
Post-Op Note Date 11/22/16 Time: 15:25 Status Pt Participated in Evaluation: Pt participated in person Vital Signs Date Time Temp Pulse Resp B/P Pulse Ox O2 Delivery O2 Flow Rate FiO2 11/22/16 15:15 70 22 142/57 95 Room Air 11/22/16 14:12 97.9 Respiratory Function: Airway patent, Regular respirations Cardiovascular Function: Regular pulse Mental Status: Alert/oriented Pain Level Intensity: 0 Unable to Assess Pain Due To: Medicated/Sleeping Hydration: Taking po fluids Complications during Recovery None apparent Post-Anesthesia Notes blood sugar 270 Follow-Up Instructions Instructions Per Surgeon DEBBIE MOSQUEDA CRNA Nov 22, 2016 15:26
--- NOTE | 2016-11-23 14:31 | OPNOTEF ---
DATE OF SERVICE 11/22/2016 SURGEON Eric Alvarado MD PREOPERATIVE DIAGNOSIS Suspicious skin lesions involving upper extremities and face. POSTOPERATIVE DIAGNOSIS Suspicious skin lesions involving upper extremities and face. PROCEDURE Excision of a suspicious skin lesion involving right distal forearm 2.5 cm in diameter with a two-layer closure of 5.5 cm incision, excision of a 1.5 cm suspicious skin lesion involving proximal right forearm with a two-layer closure of 3.5 cm incision, excision of ulcerated suspicious skin lesion involving the right cheek 2.0 cm with a two-layer closure of 4 cm incision, excision of 2.0 cm ulcerated lesion involving right postauricular region with two-layer closure 4 cm incision, excision of four 8 mm lesions involving left forearm with subsequent single-layer closure of 1.5 cm incisions, excision of ulcerated lesion from left cheek 1.8 cm in diameter with two-layer closure of 3- cm incision, excision of a suspicious ulcerated lesion involving left preauricular region 1.5 cm in diameter with two-layer closure of 3 cm incision. ANESTHESIA IV sedation and local. BRIEF HISTORY/INDICATIONS Mr. Coleman is an 81-year-old gentleman who is well known my surgical practice. I have taken care of Mr. Coleman for several general surgical issues over the last almost 10 years. The patient recently presented to my office as a result of several suspicious skin lesions involving his face and upper extremities. It was recommended the patient undergo excisional biopsy of these suspicious lesions. For completeness, please refer notes included in the patient's chart. DESCRIPTION OF PROCEDURE After informed consent was obtained, the patient was brought to the operative suite and his upper extremities and face were prepped and draped in sterile fashion. Formal time-out was completed. 0.25% Marcaine with epinephrine was injected around each suspicious skin lesion. Attention was first focused to the right forearm. An elliptical incision that was 5.5 cm in dimension was made encompassing the suspicious skin lesion involving the right distal forearm. An elliptical incision that was 3.5 cm in length was made encompassing the suspicious skin lesion involving the proximal forearm. These lesions were excised in their entirety and passed off the table as surgical specimen. Hemostasis was obtained with the use of electrocautery. Each incision was closed in a two-layer fashion. Deep subcuticular tissue was reapproximated by placing a few simple interrupted sutures of 3-0 Vicryl. Both skin incisions were then closed in a running fashion with 4-0 Prolene. Attention was then focused to ulcerated lesions involving the right cheek and right postauricular region. A 4 cm elliptical incision was made encompassing each skin lesion. Each skin lesion was excised in its entirety and hemostasis was obtained with electrocautery and both incisions were closed in a similar fashion as discussed above. Attention was then focused to the left forearm. The patient had four 8 mm suspicious skin lesions that were raised and hyperkeratotic in nature. A 1.5 cm incision was made encompassing all four of the lesions and each lesion was excised in its entirety and passed off the table as a surgical specimen. Hemostasis was obtained with electrocautery and each incision was closed in a running fashion with 4-0 Prolene. Attention then focused to the left cheek and left preauricular region. A 3 cm incision was made encompassing both of these suspicious skin lesions. Hemostasis was obtained with electrocautery and both incisions were undermined and closed in a two-layer fashion as previously described above. The patient tolerated the procedure without difficulty and is in the process of awakening from his anesthetic and will be sent back to recovery room once deemed in stable condition. YAQUELIN
== END 2016-11-22 15:50 | disposition home or self-care (01) ==
LOC: SCU 09:20
PROVIDERS: ATTEND Surgery
DX: C44.622 Squamous cell carcinoma of skin of right upper limb, including shoulder (principal); C44.629 Squamous cell carcinoma of skin of left upper limb, including shoulder; C44.329 Squamous cell carcinoma of skin of other parts of face; L57.0 Actinic keratosis; L82.1 Other seborrheic keratosis; I25.10 Atherosclerotic heart disease of native coronary artery without angina pectoris; I12.0 Hypertensive chronic kidney disease with stage 5 chronic kidney disease or end stage renal disease; N18.5 Chronic kidney disease, stage 5; E11.42 Type 2 diabetes mellitus with diabetic polyneuropathy; E78.00 Pure hypercholesterolemia, unspecified; Z79.4 Long term (current) use of insulin; Z79.899 Other long term (current) drug therapy; Z79.82 Long term (current) use of aspirin; Z88.0 Allergy status to penicillin; Z88.1 Allergy status to other antibiotic agents; Z87.891 Personal history of nicotine dependence
CPT/HCPCS: 11402; 11442; 11601; 11603; 11642; 12034; 12055; 36415; 80053; 82948; 85025; 88305; 93005; A9270; J1200; J1335; J2250; J3010; J7030; J7050